=== PATIENT | female | born 1945 | race Caucasian/White ===

== ENCOUNTER → 2017-11-19 | Outpatient (CLI) | payer MEDICARE, OTHER ==
[~2017-11-19] MED LIST: DENOSUMAB 60 MG/ML 1 ML SYRINGE SQ NR
[2017-11-19 10:25] VITALS: BP 113/77; PULSE 97; RESP 16; TEMP 97.9
== END | disposition home or self-care (01) ==
LOC: PROCWHC3 09:54
PROVIDERS: ATTEND Family Medicine
DX: M81.0 Age-related osteoporosis without current pathological fracture (principal)
CPT/HCPCS: 96372; J0897

== ENCOUNTER → 2018-05-23 | Outpatient (CLI) | payer MEDICARE, OTHER ==
[~2018-05-23] MED LIST changes: -DENOSUMAB 60 MG/ML 1 ML SYRINGE SQ NR; +DENOSUMAB 60 MG/ML 1 ML SYRINGE SQ ONE
[2018-05-23 14:57] VITALS: BP 127/62; PULSE 110; RESP 18; TEMP 97.8
== END | disposition home or self-care (01) ==
LOC: PROCWHC3 14:45
PROVIDERS: ATTEND Family Medicine
DX: M81.0 Age-related osteoporosis without current pathological fracture (principal)
CPT/HCPCS: 96372; J0897

== ENCOUNTER → 2018-12-06 | Outpatient (CLI) | payer MEDICARE, OTHER ==
[~2018-12-06] MED LIST changes: +DENOSUMAB 60 MG/ML 1 ML SYRINGE SQ NR; -DENOSUMAB 60 MG/ML 1 ML SYRINGE SQ ONE
[2018-12-06 13:52] VITALS: BP 95/58; PULSE 61; RESP 18; TEMP 97.9
== END | disposition home or self-care (01) ==
LOC: PROCWHC3 13:33
PROVIDERS: ATTEND Family Medicine
DX: M81.0 Age-related osteoporosis without current pathological fracture (principal)
CPT/HCPCS: 96372; J0897

== ENCOUNTER 2020-01-04 13:26 | Emergency (ER) | payer MEDICARE, OTHER ==
--- NOTE | 2020-01-04 14:02 | ED ---
Chest Pain HPI - General Chief Complaint: Chest Pain Stated Complaint: chest pain Time Seen by Provider: 01/04/20 13:41 Source: patient Mode of arrival: ambulatory Limitations: no limitations - History of Present Illness Initial Comments: Dictation was produced using [employer] dictation software. please excuse any grammatical, word or spelling errors. This patient was cared for during a federal and state declared state of emergency secondary to Covid 19 Chief Complaint: 74-year-old female past medical history coronary artery disease, angina and coronary artery stent presents with neck pain and chest pain. History of Present Illness: A 74-year-old female she's been working with a chiropractor. She's been getting soft tissue treatment to her cervical soft tissues. She's been having treatments for several days now. Shortly after patient has been having neck pain has been returning down to her chest. She states that the pain as sharp and dull. She discuss her symptoms with another individual and was told to come to the emergency department. Patient denies any associated nausea. No associated diaphoresis. No extension of her symptoms under extremities. Patient denies any symptoms at this time. She denies any dyspnea. Patient's symptoms seemed to be exacerbated with movement. The ROS documented in this emergency department record has been reviewed and confirmed by me. Those systems with pertinent positive or negative responses have been documented in the HPI. All other systems are other negative and/or no ncontributory. PHYSICAL EXAM: General Impression: Alert and oriented x3, not in acute distress HEENT: Normocephalic atraumatic, extra-ocular movements intact, pupils equal and reactive to light bilaterally, mucous membranes moist. Cardiovascular: Heart regular rate and rhythm Chest: Able to complete full sentences, no retractions, no tachypnea Abdomen: abdomen soft, non-tender, non-distended, no organomegaly Musculoskeletal: Pulses present and equal in all extremities, no peripheral edema Motor: no focal deficits noted Neurological: CN II-XII grossly intact, no focal motor or sensory deficits noted Skin: Intact with no visualized rashes Psych: Normal affect and mood ED course: 74-year-old female presents with chest pain and neck pain after recent initiation of chiropractic therapy. Vital signs upon arrival shows heart rate of 101, rest of vital signs within acceptable limits. EKG was obtained similar findings to EKG from 2015. Her HPI suggests a typical features. Laboratory evaluation obtained. CBC unremarkable. Coag panel is negative. Metabolic panel is negative. Enzymes negative. So troponins showed no dynamic changes. Chest x-ray is nonacute. Patient prescription consistent with atypical chest pain likely secondary to recent manipulative therapy by chiropractor. Patient advised to take [id number] analgesics to alleviate her symptoms. A temporary discussed. Patient will be discharged. EKG interpretation: Ventricular rate 100, normal sinus rhythm,. 152, QRS 108, QTc 446. No [place] prolongation, no QTC prolongation. No recent old EKG for comparison. There does appear to be some hyperacute T waves in the anterior precordial leads that appear to be baseline. 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 Repeat EKG was obtained several minutes later. Ventricular rate 84, QRS 110, QTc 450. Sinus rhythm with sinus arrhythmia. No dynamic changes noted. - Related Data Home Medications Medication Instructions Recorded Confirmed Cholecalciferol [Vitamin D3 (25 2,000 unit PO DAILY 01/05/14 12/06/18 Mcg = 1000 Iu)] Folic Acid 1 mg PO DAILY 01/05/14 12/06/18 Levothyroxine Sodium [Synthroid] 88 mcg PO QAM 01/05/14 12/06/18 Amitriptyline HCl 25 mg PO HS 04/04/15 12/06/18 Cyanocobalamin [Vitamin B-12 1,000 mcg SQ Q30D 04/04/15 12/06/18 Injection] Cyclobenzaprine [Flexeril] 10 mg PO BID 04/04/15 12/06/18 Hydrocodone/Acetaminophen 1 tab PO QID 04/04/15 12/06/18 [Hydrocodone-Acetamin 10-325 mg] Aspirin 325 mg PO DAILY 11/21/15 12/06/18 Atorvastatin [Lipitor] 20 mg PO DAILY 11/21/15 12/06/18 Fluticasone/Salmeterol [Advair 1 puff INHALATION DAILY PRN 11/21/15 12/06/18 100-50 Diskus] carvediloL [Coreg] 6.25 mg PO BID 11/21/15 12/06/18 Metoprolol Succinate [Toprol XL] 50 mg PO TID 05/23/18 12/06/18 Allergies Allergy/AdvReac Type Severity Reaction Status Date / Time codeine Allergy Rash/Hives Verified 01/04/20 13:35 Review of Systems ROS Statement: Those systems with pertinent positive or pertinent negative responses have been documented in the HPI. ROS Other: All systems not noted in ROS Statement are negative. Past Medical History Past Medical History: Chest Pain / Angina, COPD, Fibromyalgia, GERD/Reflux, Hypertension, Osteoarthritis (OA), Thyroid Disorder Additional Past Medical History / Comment(s): ANEMIA. Pain upper shoulder blades,upper back, and throat pressure. COLITIS (PERIODIC SEVERE PAIN & DIARRHEA). History of Any Multi-Drug Resistant Organisms: None Reported Past Surgical History: Bariatric Surgery, Cholecystectomy, Heart Catheterization, Tubal Ligation Additional Past Surgical History / Comment(s): 04-09-15 LT HEART CATH W/STENT PLACED TO MID LAD ,USED RT RADIAL APPROACH. OTHER PAST SX INCLUDES: STOMACH STAPLING. DISCECTOMY TO NECK. RECONSTRUCTIVE STOMACH SURG. Past Anesthesia/Blood Transfusion Reactions: Motion Sickness Additional Past Anesthesia/Blood Transfusion Reaction / Comment(s): CLAUSTERPHOBIA Past Psychological History: No Psychological Hx Reported Smoking Status: Vaper Past Alcohol Use History: None Reported Past Drug Use History: None Reported - Past Family History Mother Additional Family Medical History / Comment(s): heart problems Father Additional Family Medical History / Comment(s): heart problems Brother(s) Family Medical History: Myocardial Infarction (PR) Daughter(s) Family Medical History: Myocardial Infarction (PR) Additional Family Medical History / Comment(s): obesity,lung problems General Exam Limitations: no limitations Course Vital Signs 01/04/20 01/04/20 13:29 14:30 Temperature 98.1 F Pulse Rate 101 H 94 Respiratory 18 14 Rate Blood Pressure 146/91 110/87 O2 Sat by Pulse 96 95 Oximetry Disposition Clinical Impression: Chest pain Disposition: HOME SELF-CARE Condition: Good Instructions (If sedation given, give patient instructions): Chest Pain (ED) Is patient prescribed a controlled substance at d/c from ED?: No Referrals: Violet Robledo MD [Primary Care Provider] - 1-2 days Time of Disposition: 15:11
[2020-01-04 14:28] LABS: Basophils # (A) 0.1 k/uL (0-0.2); Basophils % (A) 1 %; Eosinophils # (A) 0.3 k/uL (0-0.7); Eosinophils % (A) 3 %; HCT 42.8 % (34.0-46.0); HGB 12.9 gm/dL (11.4-16.0); Hypochromasia Moderate; Lymphocytes # (A) 1.8 k/uL (1.0-4.8); Lymphocytes % (A) 17 %; MCH 26.1 pg (25.0-35.0); MCHC 30.2 g/dL (31.0-37.0); MCV 86.6 fL (80.0-100.0); Monocytes # (A) 0.5 k/uL (0-1.0); Monocytes % (A) 5 %; Neutrophils # (A) 7.5 k/uL (1.3-7.7); Neutrophils % (A) 73 %; Platelet Count 362 k/uL (150-450); RBC 4.95 m/uL (3.80-5.40); RDW 15.4 % (11.5-15.5); WBC 10.3 k/uL (3.8-10.6)
[2020-01-04 14:39] LABS: Albumin 3.5 g/dL (3.5-5.0); Calcium 9.2 mg/dL (8.4-10.2); Magnesium 1.7 mg/dL (1.6-2.3); Potassium 4.9 mmol/L (3.5-5.1); Total Bilirubin 0.3 mg/dL (0.2-1.3); Total Protein 5.9 g/dL (6.3-8.2)
--- NOTE | 2020-01-04 14:40 | XR ---
EXAMINATION TYPE: XR chest 2V DATE OF EXAM: 01/04/2020 COMPARISON: NONE HISTORY: Shortness of breath TECHNIQUE: Frontal and lateral views of the chest are obtained. FINDINGS: Scattered senescent parenchymal changes noted. Hyperinflation compatible with COPD. No evidence for infiltrate. No evidence for atelectasis. Heart size is stable. Mediastinal structures are stable and grossly unremarkable. No evidence for hilar prominence. Degenerative changes dorsal spine. IMPRESSION: 1. No evidence for acute pulmonary disease.
[2020-01-04 14:49] LABS: INR 0.9 (<1.2); Partial Thromboplastin Time 22.2 sec (22.0-30.0); Prothrombin Time 9.3 sec (9.0-12.0)
[2020-01-04 15:23] VITALS: BP 107/79; PULSE 97; RESP 17; TEMP 98.3
== END 2020-01-04 15:23 | disposition home or self-care (01) ==
LOC: EC 13:26
DX: R07.89 Other chest pain (principal); M54.2 Cervicalgia; I49.8 Other specified cardiac arrhythmias; I25.2 Old myocardial infarction; J44.9 Chronic obstructive pulmonary disease, unspecified; M79.7 Fibromyalgia; K21.9 Gastro-esophageal reflux disease without esophagitis; I10 Essential (primary) hypertension; M19.90 Unspecified osteoarthritis, unspecified site; E07.9 Disorder of thyroid, unspecified; D64.9 Anemia, unspecified; F17.290 Nicotine dependence, other tobacco product, uncomplicated; Z79.82 Long term (current) use of aspirin; Z79.51 Long term (current) use of inhaled steroids; Z79.899 Other long term (current) drug therapy; Z79.890 Hormone replacement therapy; Z88.5 Allergy status to narcotic agent; Z95.5 Presence of coronary angioplasty implant and graft; Z98.84 Bariatric surgery status; Z87.19 Personal history of other diseases of the digestive system
CPT/HCPCS: 36415; 71046; 80053; 83735; 84484; 85025; 85610; 85730; 93005; 99285

== ENCOUNTER 2023-02-22 06:45 | Day surgery (SDC) | payer MEDICARE, OTHER ==
[~2023-02-22 06:45] MED LIST changes: +ALPRAZolam 0.25 MG TAB PO PRN; +ALPRAZolam 0.5 MG TAB PO PRN; +ASPIRIN 325 MG TAB PO STA; -DENOSUMAB 60 MG/ML 1 ML SYRINGE SQ NR; +HEPARIN SODIUM,PORCINE (1 ML) 2,500 UNIT in SODIUM CHLORIDE 0.9% 250 ML IRRIGATION PRN; +HEPARIN SODIUM,PORCINE 10,000 UNIT in SODIUM CHLORIDE 0.9% 1,000 ML IRRIGATION PRN; +NITROGLYCERIN SL TABS 0.4 MG TAB SUBLINGUAL PRN; +SODIUM CHLORIDE 0.9% 1,000 ML in EMPTY BAG 1 BAG IV SCH
[2023-02-22] MEDS ORDERED: SODIUM CHLORIDE 0.9% 1,000 ML IV ONE (06:56)
[2023-02-22 07:26] LABS: Basophils % (A) 1 %; Eosinophils # (A) 0.4 k/uL (0-0.7); Eosinophils % (A) 6 %; HCT 46.9 % (34.0-46.0); HGB 14.1 gm/dL (11.4-16.0); Hypochromasia Marked; Lymphocytes # (A) 2.2 k/uL (1.0-4.8); Lymphocytes % (A) 30 %; MCHC 30.1 g/dL (31.0-37.0); MCV 89.6 fL (80.0-100.0); Mean Platelet Volume 7.5; Monocytes # (A) 0.4 k/uL (0-1.0); Monocytes % (A) 6 %; Neutrophils % (A) 57 %; Platelet Count 235 k/uL (150-450); RBC 5.23 m/uL (3.80-5.40); RDW 15.3 % (11.5-15.5); WBC 7.1 k/uL (3.8-10.6)
[2023-02-22 07:30] VITALS: TEMP 97.8
[2023-02-22 07:43] LABS: African American GFR (CKD) 66 (>60 ml/min/1.73 sqM); Anion Gap 7 mmol/L; Blood Urea Nitrogen 15 mg/dL (7-17); Calcium 8.8 mg/dL (8.4-10.2); Carbon Dioxide 26 mmol/L (22-30); Chloride 105 mmol/L (98-107); Glucose 94 mg/dL (74-99); Non-African American GFR(CKD) 58 (>60 ml/min/1.73 sqM); Sodium 138 mmol/L (137-145)
[2023-02-22 07:44] LABS: Potassium 5.5 mmol/L (3.5-5.1)
[2023-02-22] MEDS ORDERED: VERAPAMIL 2.5 MG/ML 2 ML AMP ONE (08:14)
[2023-02-22] MEDS ORDERED: HEPARIN SODIUM 1,000 UN/ML (10ML VL) ONE (08:23)
[2023-02-22] MEDS ORDERED: MIDAZOLAM 2 MG/2 ML VIAL IVP ONE (08:28)
[2023-02-22] MEDS ORDERED: LIDOCAINE 1% INJ 10MG/ML (30 ML VIAL-PF) SQ ONE (08:32)
[2023-02-22] MEDS ORDERED: VERAPAMIL SYRINGE (5 MG/10 ML) INTRAARTER ONE (08:36)
[2023-02-22] MEDS ORDERED: HEPARIN SODIUM 1,000 UN/ML (10ML VL) IV ONE (08:36)
[2023-02-22] MEDS ORDERED: IOPAMIDOL-370 100ML BTL INJ ONE (08:40)
[2023-02-22] MEDS ORDERED: RX INFO: IV CONTRAST WAS GIVEN 1 EACH MISC MISCELLANE PRN (08:46)
--- NOTE | 2023-02-22 08:54 | P.PCN ---
Date of Procedure: 02/22/23 Operative Findings: CARDIAC CATHETERIZATION PERFORMING PHYSICIAN: Nasir Garsia MD, RPVI PROCEDURE PERFORMED: 1. Selective right and left coronary angiogram 2. Left heart catheterization 3. Ultrasound-guided access of the right radial artery INDICATION: Chest discomfort concerning for angina in this 77-year-old female patient was known to have CAD was prior stenting of the LAD as well as multiple risk factors for CAD. COMPLICATION: None APPROACH: Right radial artery LEVEL OF SEDATION: Moderate with a sedation length of 14 minutes PROCEDURE DESCRIPTION: After obtaining an informed consent, the patient was brought to cardiac cath l ab. Local anesthesia was performed using lidocaine subcutaneously. The right radial artery was cannulated using Seldinger technique, the guidewire passed easily, following that we advanced a 5-Vincentian sheath dilator assembly, the wire and dilator were removed and sheath was flushed. Following that, 2 mg of verapamil along with 5000 unit heparin were given. Selective right and left coronary angiogram using a 6-Vincentian JR4 and JL 3.5 catheters. Following that we did left heart catheterization using the JR 4 catheter. The procedure was completed there was no complication. SELECTIVE CORONARY ANGIOGRAM: The right coronary artery: Large caliber vessel and a dominant vessel. The RCA has mild disease in the midportion. Distally bifurcates into PDA and PLV branches and both appeared to be angiographically normal Left main: Has mild disease distally. Bifurcates into an LCx and LAD The left circumflex: Large caliber vessel and nondominant dominant vessel. The LCx appeared to be angiographically normal. It gives rises into OM1 and OM 2 and both appeared to be angiographically normal. The circumflex continue after that as a medium caliber vessel in the AV groove The left anterior descending artery: Large caliber vessel. The proximal LAD appeared to be angiographically normal. The mid LAD is a stented and the stent is patent. The LAD distally appears to be angiographically normal. The LAD gives rise into a diagonal branch which seems to be normal as well HEMODYNAMICS: The LVEDP was 14 mmHg with no significant gradient across aortic valve CONCLUSION: 1. Patent stent in the mid left anterior descending artery 2. Normal left-sided filling pressure POSTPROCEDURE MANAGEMENT: Medical treatment
[2023-02-22] MEDS ORDERED: SODIUM CHLORIDE 0.9% 1,000 ML IV SCH (09:00)
[2023-02-22 09:07] VITALS: RESP 16
[2023-02-22 12:22] VITALS: BP 128/72; PULSE 72
== END 2023-02-22 12:18 | disposition home or self-care (01) ==
LOC: CATHCVL 06:45
PROVIDERS: ATTEND Internal Medicine Interventional Cardiology
DX: I25.10 Atherosclerotic heart disease of native coronary artery without angina pectoris (principal); I10 Essential (primary) hypertension; E78.5 Hyperlipidemia, unspecified; F17.210 Nicotine dependence, cigarettes, uncomplicated; I65.23 Occlusion and stenosis of bilateral carotid arteries; I38 Endocarditis, valve unspecified; Z88.5 Allergy status to narcotic agent; Z79.82 Long term (current) use of aspirin; Z79.899 Other long term (current) drug therapy
CPT/HCPCS: 93458; 76937; 80048; 85025; C1769; C1894; J2250; J2001; J1644; Q9967

== ENCOUNTER → 2023-03-08 | Outpatient (CLI) | payer MEDICARE, OTHER ==
--- NOTE | 2023-03-09 10:57 | MR ---
EXAMINATION TYPE: MR brain and iac wo/w con DATE OF EXAM: 03/08/2023 10:17 PM CLINICAL INDICATION:Female, 77 years old with history of H91.90 UNSPECIFIED HEARING LOSS, UNSPECIFIED EAR; PHH, Hearing loss on Right side COMPARISON: None TECHNIQUE: Multi planar, multi sequence imaging was performed through the brain. Specialized thin s equences were obtained through the internal auditory canals. Pre-and post gadolinium sequences were obtained. MR contrast: IV Contrast: 9 cc Gadavist FINDINGS: The guo-white junctions, ventricular system, and cisterns appear unremarkable. Scattered foci of hi gh T2 signal intensity are seen within the periventricular white matter some of which are orthogonal to the lateral ventricles. Midline structures show no abnormality. Diffusion-weighted imaging shows n o evidence of restricted diffusion. The susceptibility weighted images do not reveal any evidence for micro-hemorrhage. 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 The bone marrow signal is within normal limits. Paranasal sinuses and mastoid air cells: Mild scattered paranasal sinus disease. Visualized orbits: Bilateral aphakia After administration of gadolinium, no abnormal enhancement is seen. The internal auditory canal sequences demonstrate no significant irregularity. The 7th cranial nerve s, 8 cranial nerves, and cerebellar pontine angles appear unremarkable. After the administration molly olinium, no abnormal enhancement is seen within the internal auditory canals. Vascular loop: None. IMPRESSION: 1. No evidence of intracranial mass nor acute/subacute CVA. 2. No evidence of internal auditory canal abnormality. 3. White matter changes some of which are orthogonal to the lateral ventricles. Correlate for demyel ination. Other white matter changes appear to represent chronic small vessel ischemic disease changes .
== END | disposition home or self-care (01) ==
LOC: RADMRIMAIN 20:00
PROVIDERS: ATTEND Otolaryngology
DX: H91.91 Unspecified hearing loss, right ear (principal); R90.82 White matter disease, unspecified
CPT/HCPCS: 70553; A9585

== ENCOUNTER 2023-11-19 21:15 | Inpatient (IN) | payer MEDICARE, OTHER ==
--- NOTE | 2023-11-19 21:29 | ED ---
Altered Mental Status HPI - General Stated Complaint: CARDIAC ARREST Time Seen by Provider: 11/19/23 21:17 Source: patient, EMS Mode of arrival: EMS Limitations: no limitations - History of Present Illness Initial Comments: This patient is an 78-year-old woman who is brought to have evaluation after syncopal episode or arrest. EMS was called because the patient reportedly had passed out while she had bent over to feed her cat. Patient's family reportedly did CPR, on EMS arrival they did find vital signs with heart rate approximately 70. SHe was alert and speaking. During transport the patient appeared to develop third-degree heart block with pulse in the 20s. The EMS personnel did give epinephrine 1 mg, 2 doses were delivered. They also performed external pacing. On arrival the patient is able to give some details. She denied having pain at home. She did say she was short of breath at home. She does not remember the syncopal episode. She is currently denying chest pain other than related to the external pacing that is going on. EMS did give dose of Versed 2 mg for the pacing. MD Complaint: altered mental status -: minutes(s) Severity: severe Consistency of Symptoms: waxing and waning Associated Symptoms: diaphoresis, shortness of breath Treatments Prior to Arrival: other pre-hospital medication (Epinephrine and external pacing. Versed.) - Related Data Home Medications Medication Instructions Recorded Confirmed Folic Acid 1 mg PO DAILY 01/05/14 11/20/23 Levothyroxine Sodium [Synthroid] 88 mcg PO DAILY 01/05/14 11/20/23 Aspirin [Adult Low Dose Aspirin EC] 81 mg PO DAILY 02/18/23 11/20/23 Escitalopram Oxalate [Lexapro] 10 mg PO DAILY 02/18/23 11/20/23 Gabapentin 300 mg PO BID 02/18/23 11/20/23 Metoprolol Tartrate [Lopressor] 100 mg PO BID 02/18/23 11/20/23 Nitroglycerin 0.4 mg SL Q5M PRN 02/18/23 11/20/23 Pantoprazole [Protonix] 40 mg PO DAILY 02/18/23 11/20/23 clonazePAM 0.75 mg PO HS 02/18/23 11/20/23 Amiodarone [Cordarone] 200 mg PO DAILY 11/20/23 11/20/23 Apixaban [Eliquis] 5 mg PO BID 11/20/23 11/20/23 Atorvastatin Calcium [Lipitor] 40 mg PO HS 11/20/23 11/20/23 Budesonide/Formoterol Fumarate 2 puff INHALATION RT-BID 11/20/23 11/20/23 [Symbicort 160-4.5 Mcg Inhaler] Cyanocobalamin [Vitamin B-12 1,000 mcg SQ Q14D 11/20/23 11/20/23 Injection] Denosumab [Prolia] 60 mg SQ Q180D 11/20/23 11/20/23 Furosemide [Lasix] 40 mg PO DAILY 11/20/23 11/20/23 oxyCODONE-APAP 7.5-325MG [Percocet 1 tab PO QID 11/20/23 11/20/23 7.5-325 mg] Previous Rx's Medication Instructions Recorded Cholecalciferol [Vitamin D3 (25 50 mcg PO DAILY tab 11/23/23 Mcg = 1000 Iu)] Isosorbide Mononitrate ER [Imdur] 30 mg PO QAM #30 tab 11/23/23 Oxybutynin ER [Ditropan XL] 15 mg PO QAM #30 tab 11/23/23 Allergies Allergy/AdvReac Type Severity Reaction Status Date / Time codeine Allergy cannot Verified 11/20/23 09:26 move muscles Review of Systems ROS Statement: Those systems with pertinent positive or pertinent negative responses have been documented in the HPI. ROS Other: All systems not noted in ROS Statement are negative. Constitutional: Reports: weakness. Denies: fever, chills Eyes: Denies: vision change Respiratory: Reports: dyspnea. Denies: cough, wheezes, hemoptysis Cardiovascular: Reports: syncope. Denies: chest pain, palpitations, orthopnea, edema Gastrointestinal: Denies: abdominal pain, vomiting, diarrhea Genitourinary: Denies: dysuria, hematuria Musculoskeletal: Denies: back pain Skin: Denies: rash Neurological: Denies: headache, weakness, numbness Past Medical History Past Medical History: Chest Pain / Angina, COPD, GERD/Reflux, Hypertension, Osteoarthritis (OA), Thyroid Disorder Additional Past Medical History / Comment(s): Abnormal ekf. Anemia, murmur, pain upper shoulder blades/upper back, and throat pressure, COLITIS (PERIODIC SEVERE PAIN & DIARRHEA). History of Any Multi-Drug Resistant Organisms: None Reported Past Surgical History: Bariatric Surgery, Cholecystectomy, Heart Cathet erization, Joint Replacement, Orthopedic Surgery, Tubal Ligation Additional Past Surgical History / Comment(s): 04-09-15 LT HEART CATH W/STENT PLACED TO MID LAD ,USED RT RADIAL APPROACH. OTHER PAST SX INCLUDES: STOMACH STAPLING. DISCECTOMY TO NECK. RECONSTRUCTIVE STOMACH SURG, total R shoulder replaced, R total knee. Past Anesthesia/Blood Transfusion Reactions: Motion Sickness Additional Past Anesthesia/Blood Transfusion Reaction / Comment(s): CLAUSTERPHOBIA Smoking Status: Current every day smoker, Vaper - Past Family History Mother Additional Family Medical History / Comment(s): heart problems Father Additional Family Medical History / Comment(s): heart problems Brother(s) Family Medical History: Myocardial Infarction (CT) Additional Family Medical History / Comment(s): of CT at 59 yrs. Daughter(s) Family Medical History: Myocardial Infarction (CT) Additional Family Medical History / Comment(s): obesity,lung problems, from CT at 46yrs. General Exam General appearance: alert, in no apparent distress Head exam: Present: atraumatic, normocephalic Eye exam: Present: normal appearance. Absent: scleral icterus, conjunctival injection ENT exam: Present: mucous membranes dry Neck exam: Present: normal inspection Respiratory exam: Present: normal lung sounds bilaterally. Absent: respiratory distress, wheezes, rales, rhonchi, stridor, accessory muscle use Cardiovascular Exam: Present: regular rate, normal rhythm, normal heart sounds. Absent: systolic murmur, diastolic murmur, rubs, gallop GI/Abdominal exam: Present: soft. Absent: distended, tenderness, guarding, rebound, rigid, mass Extremities exam: Present: normal inspection, normal capillary refill. Absent: pedal edema, calf tenderness Back exam: Present: normal inspection. Absent: CVA tenderness (R), CVA tenderness (L) Neurological exam: Present: alert, CN II-XII intact. Absent: oriented X3 (Disoriented to the date. Oriented to person and place), motor sensory deficit Skin exam: Present: warm, dry, intact, normal color. Absent: rash Course Vital Signs 11/19/23 11/19/23 11/19/23 21:18 21:22 21:31 Temperature Pulse Rate 70 63 67 Pulse Rate [ 58 L Consumer Recruiter ] Respiratory 20 18 20 Rate Blood Pressure 119/73 121/62 O2 Sat by Pulse 100 100 Oximetry 11/19/23 11/19/23 11/19/23 21:41 21:45 22:15 Temperature Pulse Rate 61 58 L Pulse Rate [ Consumer Recruiter ] Respiratory 16 14 Rate Blood Pressure 92/48 105/61 O2 Sat by Pulse 98 100 Oximetry 11/19/23 11/20/23 11/20/23 23:15 00:28 00:30 Temperature Pulse Rate 60 63 59 L Pulse Rate [ Consumer Recruiter ] Respiratory 12 18 13 Rate Blood Pressure 141/81 139/75 O2 Sat by Pulse 100 99 Oximetry 11/20/23 11/20/23 11/20/23 00:40 00:50 01:00 Temperature Pulse Rate 61 60 62 Pulse Rate [ Consumer Recruiter ] Respiratory 11 L 11 L 12 Rate Blood Pressure 138/78 131/73 O2 Sat by Pulse 99 99 99 Oximetry 11/20/23 11/20/23 11/20/23 01:10 01:15 01:20 Temperature Pulse Rate 60 60 61 Pulse Rate [ Consumer Recruiter ] Respiratory 13 14 11 L Rate Blood Pressure 128/67 149/82 149/82 O2 Sat by Pulse 99 100 Oximetry 11/20/23 11/20/23 11/20/23 01:40 02:00 02:10 Temperature Pulse Rate 60 60 60 Pulse Rate [ Consumer Recruiter ] Respiratory 12 11 L 10 L Rate Blood Pressure 145/75 161/85 159/81 O2 Sat by Pulse 99 99 99 Oximetry 11/20/23 11/20/23 11/20/23 02:20 02:30 02:40 Temperature Pulse Rate 59 L 65 70 Pulse Rate [ Consumer Recruiter ] Respiratory 11 L 15 16 Rate Blood Pressure 163/80 163/80 157/109 O2 Sat by Pulse 99 94 L 96 Oximetry 11/20/23 11/20/23 11/20/23 02:50 03:00 03:10 Temperature Pulse Rate 66 69 63 Pulse Rate [ Consumer Recruiter ] Respiratory 23 16 9 L Rate Blood Pressure 138/78 138/78 141/79 O2 Sat by Pulse 97 96 99 Oximetry 11/20/23 11/20/23 11/20/23 03:20 03:30 03:40 Temperature Pulse Rate 61 60 60 Pulse Rate [ Consumer Recruiter ] Respiratory 10 L 12 Rate Blood Pressure 168/80 154/74 O2 Sat by Pulse 98 99 Oximetry 11/20/23 11/20/23 11/20/23 04:00 04:10 04:30 Temperature Pulse Rate 60 61 56 L Pulse Rate [ Consumer Recruiter ] Respiratory 11 L 7 L 13 Rate Blood Pressure 144/75 124/77 133/75 O2 Sat by Pulse 99 99 98 Oximetry 11/20/23 11/20/23 11/20/23 04:40 05:00 05:20 Temperature Pulse Rate 61 61 67 Pulse Rate [ Consumer Recruiter ] Respiratory 12 13 13 Rate Blood Pressure 117/76 121/76 128/71 O2 Sat by Pulse 99 99 98 Oximetry 11/20/23 11/20/23 11/20/23 05:30 06:20 06:30 Temperature Pulse Rate 60 59 L 62 Pulse Rate [ Consumer Recruiter ] Respiratory 13 13 14 Rate Blood Pressure 128/71 146/72 146/72 O2 Sat by Pulse 99 100 99 Oximetry 11/20/23 11/20/23 11/20/23 06:40 08:16 09:48 Temperature Pulse Rate 63 60 59 L Pulse Rate [ Consumer Recruiter ] Respiratory 13 18 16 Rate Blood Pressure 146/72 141/76 155/82 O2 Sat by Pulse 99 99 97 Oximetry 11/20/23 11/20/23 12:19 12:36 Temperature 98.0 F 97.8 F Pulse Rate 63 Pulse Rate [ Consumer Recruiter ] Respiratory 18 Rate Blood Pressure 122/73 O2 Sat by Pulse 96 Oximetry - Reevaluation(s) Reevaluation #1: 11/19/23 23:15 Brought for syncopal episode, possible cardiac arrest. The patient never had l oss vital signs during EMSs course with the patient, suspect that the patient just had low heart rate and blood pressure but no cardiac arrest. Medical Decision Making - Medical Decision Making Patient is an 78-year-old woman here for period of unresponsiveness that appears to have been probably due to hypotension. She did have episode of third-degree heart block with symptomatic bradycardia during transport. She arrived with external pacing in progress. The pacing was held and the patient is in sinus rhythm on arrival. Case discussed with Dr. Felix, request that the patient be placed on low-dose of dopamine. Patient is admitted but she is holding in the ED. Was stable for a number of hours, case was discussed with cardiology again by nursing and the dopamine drip was then held. I discussed the case with Dr. Grider, regarding ICU admission to ensure that the patient does not go again into third-degree heart block with symptomatic bradycardia and patient can be admitted to the ICU until she is cleared by cardiology The patient had chest x-ray that I interpreted as negative for acute infiltrate, pneumothorax, congestive heart failure Was pt. sent in by a medical professional or institution (, PA, FIELD ADVISOR, urgent care, hospital, or correction...) When possible be specific @ -[No] Did you speak to anyone other than the patient for history (EMS, parent, family, police, friend...)? What history was obtained from this source @ -EMS gave additional history Did you review nursing and triage notes (agree or disagree)? Why? @ -[I reviewed and agree with nursing and triage notes] Were old charts reviewed (outside hosp., previous admission, EMS record, old EKG, old radiological studies, urgent care reports/EKG's, correction records)? Report findings @ -[No old charts were reviewed] Differential Diagnosis (chest pain, altered mental status, abdominal pain women, abdominal pain men, vaginal bleeding, weakness, fever, dyspnea, syncope, headache, dizziness, GI bleed, back pain, seizure, CVA, palpatations, mental health, musculoskeletal)? @ -[Differential Syncope: Valvular disease, hypertrophic cardiomyopathy, pulmonary embolism, tamponade, tachycardia, bradycardia, CT, hypovolemia, hemorrhage, dissection, anemia, intracranial hemorrhage, seizure, hypoglycemia, carbon monoxide poisoning, this is not meant to be an all-inclusive list. EKG interpreted by me (3pts min.). @ -[I interpreted as above] X-rays interpreted by me (1pt min.). @ -I interpreted as above CT interpreted by me (1pt min.). @ -[None done] U/S interpreted by me (1pt. min.). @ -[None done] What testing was considered but not performed or refused? (CT, X-rays, U/S, labs)? Why? @ -[None] What meds were considered but not given or refused? Why? @ -[None] Did you discuss the management of the patient with other professionals (professionals i.e. , YULISA, FIELD ADVISOR, lab, RT, psych nurse, psych social worker, compensation adjuster, teacher, sewage reticulation drafting officer, egg caser)? Give summary @ -[I discussed the case both with the admitting physician and with cardiology on-call and their treatment recommendations are incorporated Was smoking cessation discussed for >3mins.? @ -[No] Was critical care preformed (if so, how long)? @ -[No] Were there social determinants of health that impacted care today? How? (Homelessness, low income, unemployed, alcoholism, drug addiction, transportation, low edu. Level, literacy, decrease access to med. care, senior living, rehab)? @ -[No] Was there de-escalation of care discussed even if they declined (Discuss DNR or withdrawal of care, Hospice)? DNR status @ -[No] What co-morbidities impacted this encounter? (DM, HTN, Smoking, COPD, CAD, Cancer, CVA, ARF, Chemo, Hep., AIDS, mental health diagnosis, sleep apnea, mor bid obesity)? @ -[None] Was patient admitted / discharged? Hospital course, mention meds given and route, prescriptions, significant lab abnormalities, going to OR and other pertinent info. @ -See the above note patient is admitted to have further monitoring and treatment as well as cardiology consultation. Undiagnosed new problem with uncertain prognosis? @ -[No] Drug Therapy requiring intensive monitoring for toxicity (Heparin, Nitro, Insulin, Cardizem)? @ -[No] Were any procedures done? @ -[No] Diagnosis/symptom? @ -Acute syncopal episode Third-degree heart block. Symptomatic bradycardia Acute kidney injury Acute, or Chronic, or Acute on Chronic? @ -[Acute Uncomplicated (without systemic symptoms) or Complicated (systemic symptoms)? @ -[Complicated by loss consciousness Side effects of treatment? @ -[No] Exacerbation, Progression, or Severe Exacerbation? @ -[No] Poses a threat to life or bodily function? How? (Chest pain, USA, CT, pneumonia, PE, COPD, DKA, ARF, appy, cholecystitis, CVA, Diverticulitis, Homicidal, Suicidal, threat to staff... and all critical care pts) @ -Yes complete heart block may lead to sudden cardiac . - Lab Data Result diagrams: 11/22/23 07:47 11/22/23 07:47 Lab Results 11/19/23 11/19/23 11/19/23 Range/Units 21:17 21:17 21:17 WBC 8.5 (3.8-10.6) k/uL RBC 4.98 (3.80-5.40) m/uL Hgb 13.5 (11.4-16.0) gm/dL Hct 46.1 H (34.0-46.0) % MCV 92.5 (80.0-100.0) fL MCH 27.1 (25.0-35.0) pg MCHC 29.3 L (31.0-37.0) g/dL RDW 15.1 (11.5-15.5) % Plt Count 201 (150-450) k/uL MPV 7.7 Neutrophils % 54 % Lymphocytes % 36 % Monocytes % 5 % Eosinophils % 2 % Basophils % 1 % Neutrophils # 4.6 (1.3-7.7) k/uL Lymphocytes # 3.1 (1.0-4.8) k/uL Monocytes # 0.5 (0-1.0) k/uL Eosinophils # 0.2 (0-0.7) k/uL Basophils # 0.1 (0-0.2) k/uL Hypochromasia Marked PT 11.3 (10.0-12.5) sec INR 1.0 (<1.2) APTT 25.1 (22.0-30.0) sec Sodium 140 (137-145) mmol/L Potassium 5.0 (3.5-5.1) mmol/L Chloride 103 (98-107) mmol/L Carbon Dioxide 30 (22-30) mmol/L Anion Gap 7 mmol/L BUN 32 H (7-17) mg/dL Creatinine 1.74 H (0.52-1.04) mg/dL Est GFR (CKD-EPI)AfAm 32 (>60 ml/min/1.73 sqM) Est GFR (CKD-EPI)NonAf 27 (>60 ml/min/1.73 sqM) Glucose 155 H (74-99) mg/dL Calcium 8.2 L (8.4-10.2) mg/dL Magnesium 1.8 (1.6-2.3) mg/dL Total Bilirubin 0.7 (0.2-1.3) mg/dL AST 43 H (14-36) U/L ALT 19 (4-34) U/L Alkaline Phosphatase 62 (38-126) U/L Troponin I (0.000-0.034) ng/mL Total Protein 5.7 L (6.3-8.2) g/dL Albumin 3.4 L (3.5-5.0) g/dL TSH (0.465-4.680) mIU/L Free T4 (0.78-2.19) ng/dL 11/19/23 11/19/23 Range/Units 21:17 21:17 WBC (3.8-10.6) k/uL RBC (3.80-5.40) m/uL Hgb (11.4-16.0) gm/dL Hct (34.0-46.0) % MCV (80.0-100.0) fL MCH (25.0-35.0) pg MCHC (31.0-37.0) g/dL RDW (11.5-15.5) % Plt Count (150-450) k/uL MPV Neutrophils % % Lymphocytes % % Monocytes % % Eosinophils % % Basophils % % Neutrophils # (1.3-7.7) k/uL Lymphocytes # (1.0-4.8) k/uL Monocytes # (0-1.0) k/uL Eosinophils # (0-0.7) k/uL Basophils # (0-0.2) k/uL Hypochromasia PT (10.0-12.5) sec INR (<1.2) APTT (22.0-30.0) sec Sodium (137-145) mmol/L Potassium (3.5-5.1) mmol/L Chloride (98-107) mmol/L Carbon Dioxide (22-30) mmol/L Anion Gap mmol/L BUN (7-17) mg/dL Creatinine (0.52-1.04) mg/dL Est GFR (CKD-EPI)AfAm (>60 ml/min/1.73 sqM) Est GFR (CKD-EPI)NonAf (>60 ml/min/1.73 sqM) Glucose (74-99) mg/dL Calcium (8.4-10.2) mg/dL Magnesium (1.6-2.3) mg/dL Total Bilirubin (0.2-1.3) mg/dL AST (14-36) U/L ALT (4-34) U/L Alkaline Phosphatase (38-126) U/L Troponin I 0.016 (0.000-0.034) ng/mL Total Protein (6.3-8.2) g/dL Albumin (3.5-5.0) g/dL TSH 7.640 H (0.465-4.680) mIU/L Free T4 2.34 H (0.78-2.19) ng/dL - EKG Data -: EKG Interpreted by [facility] EKG shows normal: sinus rhythm (With first-degree AV block. Rate is 67 bpm), axis (Left axis deviation), intervals (There is a first-degree AV block with MN interval 254 ms. QRS duration is prolonged at 158 ms. QTc 476 ms.), QRS complexes ( There is a left bundle branch block.) Disposition Clinical Impression: Symptomatic bradycardia, History of third degree heart block, Syncope Disposition: ADMITTED IP TO THIS HOSP Condition: Stable Is patient prescribed a controlled substance at d/c from ED?: No
--- NOTE | 2023-11-19 21:53 | XR ---
EXAMINATION TYPE: XR chest 1V portable DATE OF EXAM: 11/19/2023 9:42 PM CLINICAL INDICATION:Female, 78 years old with history of dysrhythmia; COMPARISON: Chest radiographs from 01/04/2020 TECHNIQUE: XR chest 1V portable Frontal view of the chest. FINDINGS: Lungs/Pleura: Increased opacities in the medial aspect of the right upper lung possibly scarring bedolla ges increased from 2020. There is no evidence of pleural effusion, focal consolidation, or pneumothor ax. Pulmonary vascularity: Unremarkable. Heart/mediastinum: Cardiomediastinal silhouette is enlarged and stable. Musculoskeletal: No acute osseous pathology. There is fixation hardware in the lower cervical spine. Right shoulder arthroplasty changes with hardware intact. IMPRESSION: Right upper lung medial increased airspace opacities compared to prior in 2020.
[2023-11-19 21:54] LABS: Basophils # (A) 0.1 k/uL (0-0.2); Basophils % (A) 1 %; Eosinophils # (A) 0.2 k/uL (0-0.7); Eosinophils % (A) 2 %; HCT 46.1 % (34.0-46.0); HGB 13.5 gm/dL (11.4-16.0); Hypochromasia Marked; Lymphocytes # (A) 3.1 k/uL (1.0-4.8); Lymphocytes % (A) 36 %; MCH 27.1 pg (25.0-35.0); MCHC 29.3 g/dL (31.0-37.0); MCV 92.5 fL (80.0-100.0); Mean Platelet Volume 7.7; Monocytes # (A) 0.5 k/uL (0-1.0); Monocytes % (A) 5 %; Neutrophils # (A) 4.6 k/uL (1.3-7.7); Neutrophils % (A) 54 %; Platelet Count 201 k/uL (150-450); RBC 4.98 m/uL (3.80-5.40); RDW 15.1 % (11.5-15.5); WBC 8.5 k/uL (3.8-10.6)
[2023-11-19 22:04] LABS: ALT 19 U/L (4-34); AST 43 U/L (14-36); African American GFR (CKD) 32 (>60 ml/min/1.73 sqM); Albumin 3.4 g/dL (3.5-5.0); Alkaline Phosphatase 62 U/L (38-126); Anion Gap 7 mmol/L; Blood Urea Nitrogen 32 mg/dL (7-17); Calcium 8.2 mg/dL (8.4-10.2); Carbon Dioxide 30 mmol/L (22-30); Chloride 103 mmol/L (98-107); Glucose 155 mg/dL (74-99); Magnesium 1.8 mg/dL (1.6-2.3); Non-African American GFR(CKD) 27 (>60 ml/min/1.73 sqM); Sodium 140 mmol/L (137-145); Total Bilirubin 0.7 mg/dL (0.2-1.3); Total Protein 5.7 g/dL (6.3-8.2)
[2023-11-19 22:11] LABS: Partial Thromboplastin Time 25.1 sec (22.0-30.0); Prothrombin Time 11.3 sec (10.0-12.5)
[2023-11-20] MEDS: DOPamine DRIP 800 MG in DEXTROSE/WATER 1 250ML.BAG IV ONE (00:15)
[2023-11-20] MEDS: SODIUM CHLORIDE 0.9% 500 ML 500 ML IV STA (00:18)
[2023-11-20] MEDS: ASPIRIN 81 MG PO STA (00:19)
[2023-11-20] MEDS ORDERED: NITROGLYCERIN SL TABS 0.4 MG TAB SUBLINGUAL PRN ×2 (01:01→18:08)
[2023-11-20] MEDS: LEVOTHYROXINE 88 MCG TAB PO SCH (06:51)
[2023-11-20] MEDS ORDERED: SYMBICORT 80-4.5 MCG INHALER INHALATION PRN (08:00)
[2023-11-20] MEDS: ISOSORBIDE MONONITRATE ER 30 MG TAB.ER.24H PO SCH (08:23)
[2023-11-20] MEDS: GABAPENTIN 300 MG CAP PO SCH (08:23)
[2023-11-20] MEDS: OXYBUTYNIN 15 MG TAB.ER.24 PO SCH (08:23)
[2023-11-20] MEDS: ASPIRIN 81 MG PO SCH (08:23)
[2023-11-20] MEDS: ATORVASTATIN 20 MG TAB PO SCH (08:23)
[2023-11-20] MEDS: PANTOPRAZOLE 40 MG TABLET PO SCH (08:23)
[2023-11-20] MEDS: CHOLECALCIFEROL 25 MCG (1000 IU) TABLET PO SCH (08:23)
[2023-11-20] MEDS ORDERED: ACETAMINOPHEN TAB 325 MG TAB PO PRN (09:37)
[2023-11-20] MEDS: AMIODARONE 200 MG TAB PO SCH (09:49)
[2023-11-20] MEDS: APIXABAN 2.5 MG TABLET PO SCH (09:50)
[2023-11-20] MEDS: SODIUM CHLORIDE 0.9% 1,000 ML IV SCH ×2 (10:03→19:04)
--- NOTE | 2023-11-20 11:42 | P.CNPUL ---
History of Present Illness Consult date: 11/20/23 Requesting physician: Violet Robledo Reason for consult: other Chief complaint: Syncope, cardiopulmonary arrest. History of present illness: Pulmonary consult dated November 20, 2023. 78-year-old female who was brought in by EMS to the emergency department on November 18. The patient had either a syncopal episode, or brief episode of cardiopulmonary arrest. The patient apparently passed out after she bent over to feed her cat. Apparently there was bystander CPR for a period of time until EMS arrived. When EMS arrived, they were vital signs, with a heart rate of 70. She apparently was alert and speaking at that time. In transport to the ER, she apparently developed heart block and, she was treated with epinephrine, and transthoracic pacing. In the emergency room, she was able to give some details. The patient was seen in the emergency department, trauma room #1. The patient is currently on oxygen, 4 L. Saturations are 99%. The patient was not able to give any additional history. She was initially placed on dopamine as per cardiology but but that has been weaned off. Her vital signs currently include blood pressure 148/70 heart rate 61 respiratory rate 14. Her primary care physician is Dr. Robledo, but she also sees Dr. Garsia and Dr. Sánchez. Patient appears in no acute distress. Current labs include a white count 8.5, hemoglobin 13.5, hematocrit 46.1, and a normal platelet count. Coagulation studies are normal. Sodium 140, potassium 5, chlorides 103, CO2 30, BUN 32, and creatinine 1.74. Glucose 155. Troponins were 0.016, 0.017, and 0.032. TSH is elevated at 7.640. EKG here in the hospital shows a first-degree heart block. Chest x-ray may show a right upper lobe medial infiltrate. Review of Systems REVIEW OF SYSTEMS: CONSTITUTIONAL: [Negative.] NEUROLOGIC: Syncope. HEENT: [ Negative.] CARDIAC: Possible brief cardiopulmonary arrest. PULMONARY: [Negative.] GI: [Negative.] : [Negative.] RHEUMATOLOGIC: [ Negative.] IMMUNOLOGIC: [ Negative.] ENDOCRINE: [Negative. ] DERMATOLOGIC: [Negative.] Past Medical History Past Medical History: Chest Pain / Angina, COPD, GERD/Reflux, Hypertension, Osteoarthritis (OA), Thyroid Disorder Additional Past Medical History / Comment(s): Abnormal ekf. Anemia, murmur, pain upper shoulder blades/upper back, and throat pressure, COLITIS (PERIODIC SEVERE PAIN & DIARRHEA). History of Any Multi-Drug Resistant Organisms: None Reported Past Surgical History: Bariatric Surgery, Cholecystectomy, Heart Catheterization, Joint Replacement, Orthopedic Surgery, Tubal Ligation Additional Past Surgical History / Comment(s): 04-09-15 LT HEART CATH W/STENT PLACED TO MID LAD ,USED RT RADIAL APPROACH. OTHER PAST SX INCLUDES: STOMACH STAPLING. DISCECTOMY TO NECK. RECONSTRUCTIVE STOMACH SURG, total R shoulder replaced, R total knee. Past Anesthesia/Blood Transfusion Reactions: Motion Sickness Additional Past Anesthesia/Blood Transfusion Reaction / Comment(s): CLAUSTERPHOBIA Smoking Status: Current every day smoker, Vaper - Past Family History Mother Additional Family Medical History / Comment(s): heart problems Father Additional Family Medical History / Comment(s): heart problems Brother(s) Family Medical History: Myocardial Infarction ([place]) Additional Family Medical History / Comment(s): of [place] at 59 yrs. Daughter(s) Family Medical History: Myocardial Infarction ([place]) Additional Family Medical History / Comment(s): obesity,lung problems, from [place] at 46yrs. Medications and Allergies Home Medications Medication Instructions Recorded Confirmed Type Folic Acid 1 mg PO DAILY 01/05/14 11/20/23 History Levothyroxine Sodium [Synthroid] 88 mcg PO DAILY 01/05/14 11/20/23 History Aspirin [Adult Low Dose Aspirin EC] 81 mg PO DAILY 02/18/23 11/20/23 History Escitalopram Oxalate [Lexapro] 10 mg PO DAILY 02/18/23 11/20/23 History Gabapentin 300 mg PO BID 02/18/23 11/20/23 History Metoprolol Tartrate [Lopressor] 100 mg PO BID 02/18/23 11/20/23 History Nitroglycerin 0.4 mg SL Q5M PRN 02/18/23 11/20/23 History Pantoprazole [Protonix] 40 mg PO DAILY 02/18/23 11/20/23 History clonazePAM 0.75 mg PO HS 02/18/23 11/20/23 History Amiodarone [Cordarone] 200 mg PO DAILY 11/20/23 11/20/23 History Apixaban [Eliquis] 5 mg PO BID 11/20/23 11/20/23 History Atorvastatin Calcium [Lipitor] 40 mg PO HS 11/20/23 11/20/23 History Budesonide/Formoterol Fumarate 2 puff INHALATION RT-BID 11/20/23 11/20/23 History [Symbicort 160-4.5 Mcg Inhaler] Cyanocobalamin [Vitamin B-12 1,000 mcg SQ Q14D 11/20/23 11/20/23 History Injection] Denosumab [Prolia] 60 mg SQ Q180D 11/20/23 11/20/23 History Furosemide [Lasix] 40 mg PO DAILY 11/20/23 11/20/23 History oxyCODONE-APAP 7.5-325MG [Percocet 1 tab PO QID 11/20/23 11/20/23 History 7.5-325 mg] Allergies Allergy/AdvReac Type Severity Reaction Status Date / Time codeine Allergy cannot Verified 11/20/23 09:26 move muscles Physical Exam Osteopathic Statement: *. No significant issues noted on an osteopathic structural exam other than those noted in the History and Physical/Consult. Vitals: Vital Signs Pulse Pulse Resp BP Pulse Ox 11/20/23 09:48 59 L 16 155/82 97 11/20/23 08:16 60 18 141/76 99 11/20/23 06:40 63 13 146/72 99 11/20/23 06:30 62 14 146/72 99 11/20/23 06:20 59 L 13 146/72 100 11/20/23 05:30 60 13 128/71 99 11/20/23 05:20 67 13 128/71 98 11/20/23 05:00 61 13 121/76 99 11/20/23 04:40 61 12 117/76 99 11/20/23 04:30 56 L 13 133/75 98 11/20/23 04:10 61 7 L 124/77 99 11/20/23 04:00 60 11 L 144/75 99 11/20/23 03:40 60 12 154/74 99 11/20/23 03:30 60 11/20/23 03:20 61 10 L 168/80 98 11/20/23 03:10 63 9 L 141/79 99 11/20/23 03:00 69 16 138/78 96 11/20/23 02:50 66 23 138/78 97 07/20/24 02:40 70 16 157/109 96 11/20/23 02:30 65 15 163/80 94 L 11/20/23 02:20 59 L 11 L 163/80 99 11/20/23 02:10 60 10 L 159/81 99 11/20/23 02:00 60 11 L 161/85 99 11/20/23 01:40 60 12 145/75 99 11/20/23 01:20 61 11 L 149/82 100 11/20/23 01:15 60 14 149/82 11/20/23 01:10 60 13 128/67 99 11/20/23 01:00 62 12 99 11/20/23 00:50 60 11 L 131/73 99 11/20/23 00:40 61 11 L 138/78 99 11/20/23 00:30 59 L 13 99 11/20/23 00:28 63 18 139/75 100 11/19/23 23:15 60 12 141/81 11/19/23 22:15 58 L 14 105/61 11/19/23 21:45 61 16 92/48 100 11/19/23 21:41 98 11/19/23 21:31 67 20 121/62 100 11/19/23 21:22 63 58 L 18 11/19/23 21:18 70 20 119/73 100 Intake and Output 11/19/23 11/20/23 11/20/23 22:59 06:59 14:59 Other: Weight 80.195 kg No acute distress, oriented 3. Currently on 4 L. HEENT examination is grossly unremarkable. Mucous membranes are moist. No oral lesions. Neck supple. Full range of motion. No adenopathy thyromegaly or neck vein distention. Cardiovascular examination reveals regular rhythm rate. S1-S2 normal. No S3 or S4. No discernible murmur noted. Heart rate 64 bpm. Lungs reveal clear breath sounds. Breath sounds are equal bilaterally. No adventitious lung sounds including wheezes rhonchi or crackles. Abdomen soft bowel sounds are heard. No masses or tenderness. Extremities are intact. No cyanosis clubbing or edema. Skin is without rash or lesion. Neurologic examination is brief but nonfocal. Results - Laboratory Findings CBC and BMP: 11/19/23 21:17 11/19/23 21:17 PT/INR, D-dimer PT 11.3 sec (10.0-12.5) 11/19/23 21:17 INR 1.0 (<1.2) 11/19/23 21:17 Abnormal lab findings: Abnormal Labs 11/19/23 11/19/23 11/19/23 21:17 21:17 21:17 Hct 46.1 H MCHC 29.3 L BUN 32 H Creatinine 1.74 H Glucose 155 H Calcium 8.2 L AST 43 H Total Protein 5.7 L Albumin 3.4 L TSH 7.640 H - Diagnostic Findings Chest x-ray: image reviewed Assessment and Plan Assessment: Syncope, versus brief cardiopulmonary arrest, with bystander CPR. Third-degree heart block, treated with epinephrine, and external pacing. History of CAD with previous stent. Possible underlying mild COPD. Gastroesophageal reflux disease. History of hypertension. History of osteoarthritis. Hypothyroidism, not optimally treated. History of anemia. Plan: Plan dated November 28, 2023. The patient is seen in the emergency department. The patient was on 4 L of oxygen. Saturations were 99%. Blood pressure was 148/70. Heart rate was 61. Respiratory rate was 14. She was afebrile. The patient was no longer on dopamine. She was getting saline at 75 cc an hour. Labs, x-rays, medications are reviewed. 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 The patient's TSH is high, so she may not be taking her thyroid replacement therapy. That should be addressed by the primary service. No additional recommendations at this time. Time with Patient: Greater than 30
[2023-11-20 11:58] LABS: T4, Free (Free Thyroxine) 2.34 ng/dL (0.78-2.19)
--- NOTE | 2023-11-20 12:02 | P.CRDCN ---
History of Present Illness History of present illness: HISTORY OF PRESENT ILLNESS: This is a 78-year-old female with a past medical history significant for coronary artery disease with previous stenting of the LAD, cardiomyopathy with recovered EF, valvular heart disease, hypertension, hyperlipidemia, paroxysmal atrial fibrillation, and pulmonary embolism. Patient follows in the office with Dr. Alfonso. We have been asked to see the patient in consultation for symptomatic bradycardia. Patient examined at the bedside in the emergency room. Patient's granddaughter is present. Apparently yesterday the patient had made dinner and afterwards she was standing in the kitchen when she passed out to the floor. Her family member states that she did hit her head. She was unconscious and the feeling member called 911 and was instructed to do CPR over the phone. EMS arrived and transported the patient to the hospital. En route to the [facility], the patient developed third-degree heart block and was treated with epinephrine and temporary pacing. The patient was also started on IV dopamine in the emergency room which has since been discontinued. The patient is on high-dose beta-blockers outpatient with metoprolol 100 mg twice a day. Patient also states that she was recently at [facility] and was diagnosed with bilateral pulmonary embolisms and started on Eliquis. She states at that time she also had issues with atrial fibrillation and was started on amiodarone which she has been tapering down at home. She states that she is currently on once a day dosing but is unsure if it is 100 or 200 mg. She does report she has had episodes in the past of uncontrolled tachycardia. The patient also gives additional history that prior to being admitted to [facility] she had a syncopal episode about 2 weeks prior to being in the hospital. DIAGNOSTICS: - EKG reveals sinus mechanism with left bundle branch block. - Chest xray right upper lung medial increased airspace opacities - Laboratory data: WBC 8.5. Hemoglobin 13.5. Platelet count 201. Sodium 140. Potassium 5.0. BUN 32. Creatinine 1.74. [place] negative x 3. - Current home cardiac medications include Lipitor 40 mg at night, amiodarone 200 mg daily, Lasix 40 mg daily, Eliquis 5 mg twice a day, metoprolol tartrate 100 mg twice a day, aspirin 81 mg daily. - Most recent echocardiogram obtained in October 2023 revealed normal EF, severe pulmonary hypertension, mild AR, moderate to severe TR, mild MR -Patient underwent Lexiscan stress test in May 2020 which was negative for ischemia - Cardiac catheterization history: January 2023 revealing patent stent in the mid LAD REVIEW OF SYSTEMS: At the time of my exam: CONSTITUTIONAL: Denies fever or chills. HEENT: Denies blurred vision, vision changes, or eye pain. Denies hemoptysis CARDIOVASCULAR: Denies chest pain. Denies orthopnea. Denies PND. Denies palpitations RESPIRATORY: Denies shortness of breath. GASTROINTESTINAL: Denies abdominal pain. Denies nausea or vomiting. HEMATOLOGIC: Denies bleeding disorders. GENITOURINARY: Denies any blood in urine. SKIN: Denies pruitis. Denies rash. PHYSICAL EXAM: VITAL SIGNS: Reviewed. GENERAL: Well-developed in no acute distress. HEENT: Head is normocephalic. Pupils are equal, round. Sclerae anicteric. Mucous membranes of the mouth are moist. Neck supple. No JVD or thyromegaly LUNGS: Respirations even and unlabored. Lungs essentially clear to auscultation bilaterally. HEART: Regular rate and rhythm. S1 and S2 heard. Systolic murmur noted. ABDOMEN: Soft. Nondistended. Nontender. EXTREMITIES: Normal range of motion. No clubbing or cyanosis. Peripheral pulses intact. No lower extremity edema NEUROLOGIC: Awake and alert. Oriented x 3. ASSESSMENT: Syncope secondary to complete heart block History of recent syncopal episode prior to being started on amiodarone Paroxysmal atrial fibrillation Recent diagnosis of bilateral pulmonary embolism at [place], on Eliquis outpatient Acute kidney injury Coronary artery disease with previous stenting of the LAD Valvular heart disease Hypertension Hyperlipidemia PLAN: Obtain 2D echo to assess cardiac structure and function Resume anticoagulation with Eliquis. Dose adjusted secondary to decreased renal function Check TSH Hold metoprolol Continue amiodarone 200 mg daily in attempt to maintain sinus mechanism Continue telemetry monitoring Plan for permanent pacemaker insertion on Wednesday with Dr. Felix Patient may be downgraded to 3 S. Further recommendations pending patient course Nurse practitioner note has been reviewed by physician. Signing provider agrees with the documented findings, assessment, and plan of care documented by CULINARY ASSISTANT as a scribe. Past Medical History Past Medical History: Chest Pain / Angina, COPD, GERD/Reflux, Hypertension, Osteoarthritis (OA), Thyroid Disorder Additional Past Medical History / Comment(s): Abnormal ekf. Anemia, murmur, pain upper shoulder blades/upper back, and throat pressure, COLITIS (PERIODIC SEVERE PAIN & DIARRHEA). History of Any Multi-Drug Resistant Organisms: None Reported Past Surgical History: Bariatric Surgery, Cholecystectomy, Heart Catheterization, Joint Replacement, Orthopedic Surgery, Tubal Ligation Additional Past Surgical History / Comment(s): 04-09-15 LT HEART CATH W/STENT PLACED TO MID LAD ,USED RT RADIAL APPROACH. OTHER PAST SX INCLUDES: STOMACH STAPLING. DISCECTOMY TO NECK. RECONSTRUCTIVE STOMACH SURG, total R shoulder replaced, R total knee. Past Anesthesia/Blood Transfusion Reactions: Motion Sickness Additional Past Anesthesia/Blood Transfusion Reaction / Comment(s): CLAUSTERPHOBIA Smoking Status: Current every day smoker, Vaper - Past Family History Mother Additional Family Medical History / Comment(s): heart problems Father Additional Family Medical History / Comment(s): heart problems Brother(s) Family Medical History: Myocardial Infarction ([place]) Additional Family Medical History / Comment(s): of [place] at 59 yrs. Daughter(s) Family Medical History: Myocardial Infarction ([place]) Additional Family Medical History / Comment(s): obesity,lung problems, from [place] at 46yrs. Medications and Allergies Home Medications Medication Instructions Recorded Confirmed Type Folic Acid 1 mg PO DAILY 01/05/14 11/20/23 History Levothyroxine Sodium [Synthroid] 88 mcg PO DAILY 01/05/14 11/20/23 History Aspirin [Adult Low Dose Aspirin EC] 81 mg PO DAILY 02/18/23 11/20/23 History Escitalopram Oxalate [Lexapro] 10 mg PO DAILY 02/18/23 11/20/23 History Gabapentin 300 mg PO BID 02/18/23 11/20/23 History Metoprolol Tartrate [Lopressor] 100 mg PO BID 02/18/23 11/20/23 History Nitroglycerin 0.4 mg SL Q5M PRN 02/18/23 11/20/23 History Pantoprazole [Protonix] 40 mg PO DAILY 02/18/23 11/20/23 History clonazePAM 0.75 mg PO HS 02/18/23 11/20/23 History Amiodarone [Cordarone] 200 mg PO DAILY 11/20/23 11/20/23 History Apixaban [Eliquis] 5 mg PO BID 11/20/23 11/20/23 History Atorvastatin Calcium [Lipitor] 40 mg PO HS 11/20/23 11/20/23 History Budesonide/Formoterol Fumarate 2 puff INHALATION RT-BID 11/20/23 11/20/23 History [Symbicort 160-4.5 Mcg Inhaler] Cyanocobalamin [Vitamin B-12 1,000 mcg SQ Q14D 11/20/23 11/20/23 History Injection] Denosumab [Prolia] 60 mg SQ Q180D 11/20/23 11/20/23 History Furosemide [Lasix] 40 mg PO DAILY 11/20/23 11/20/23 History oxyCODONE-APAP 7.5-325MG [Percocet 1 tab PO QID 11/20/23 11/20/23 History 7.5-325 mg] Allergies Allergy/AdvReac Type Severity Reaction Status Date / Time codeine Allergy cannot Verified 11/20/23 09:26 move muscles Physical Exam Vitals: Vital Signs Pulse Pulse Resp BP Pulse Ox 11/20/23 09:48 59 L 16 155/82 97 11/20/23 08:16 60 18 141/76 99 11/20/23 06:40 63 13 146/72 99 11/20/23 06:30 62 14 146/72 99 11/20/23 06:20 59 L 13 146/72 100 11/20/23 05:30 60 13 128/71 99 11/20/23 05:20 67 13 128/71 98 11/20/23 05:00 61 13 121/76 99 11/20/23 04:40 61 12 117/76 99 11/20/23 04:30 56 L 13 133/75 98 11/20/23 04:10 61 7 L 124/77 99 11/20/23 04:00 60 11 L 144/75 99 11/20/23 03:40 60 12 154/74 99 11/20/23 03:30 60 11/20/23 03:20 61 10 L 168/80 98 11/20/23 03:10 63 9 L 141/79 99 11/20/23 03:00 69 16 138/78 96 11/20/23 02:50 66 23 138/78 97 11/20/23 02:40 70 16 157/109 96 11/20/23 02:30 65 15 163/80 94 L 11/20/23 02:20 59 L 11 L 163/80 99 11/20/23 02:10 60 10 L 159/81 99 11/20/23 02:00 60 11 L 161/85 99 11/20/23 01:40 60 12 145/75 99 11/20/23 01:20 61 11 L 149/82 100 11/20/23 01:15 60 14 149/82 11/20/23 01:10 60 13 128/67 99 11/20/23 01:00 62 12 99 11/20/23 00:50 60 11 L 131/73 99 11/20/23 00:40 61 11 L 138/78 99 11/20/23 00:30 59 L 13 99 11/20/23 00:28 63 18 139/75 100 11/19/23 23:15 60 12 141/81 11/19/23 22:15 58 L 14 105/61 11/19/23 21:45 61 16 92/48 100 11/19/23 21:41 98 11/19/23 21:31 67 20 121/62 100 11/19/23 21:22 63 58 L 18 11/19/23 21:18 70 20 119/73 100 Intake and Output 11/19/23 11/20/23 11/20/23 22:59 06:59 14:59 Other: Weight 80.195 kg Results 11/19/23 21:17 11/19/23 21:17 Cardiac Enzymes 11/19/23 11/19/23 11/20/23 Range/Units 21:17 21:17 01:35 AST 43 H (14-36) U/L Troponin I 0.016 0.017 (0.000-0.034) ng/mL 11/20/23 Range/Units 05:15 AST (14-36) U/L Troponin I 0.032 (0.000-0.034) ng/mL Coagulation 11/19/23 Range/Units 21:17 PT 11.3 (10.0-12.5) sec APTT 25.1 (22.0-30.0) sec CBC 11/19/23 Range/Units 21:17 WBC 8.5 (3.8-10.6) k/uL RBC 4.98 (3.80-5.40) m/uL Hgb 13.5 (11.4-16.0) gm/dL Hct 46.1 H (34.0-46.0) % Plt Count 201 (150-450) k/uL Comprehensive Metabolic Panel 11/19/23 Range/Units 21:17 Sodium 140 (137-145) mmol/L Potassium 5.0 (3.5-5.1) mmol/L Chloride 103 (98-107) mmol/L Carbon Dioxide 30 (22-30) mmol/L BUN 32 H (7-17) mg/dL Creatinine 1.74 H (0.52-1.04) mg/dL Glucose 155 H (74-99) mg/dL Calcium 8.2 L (8.4-10.2) mg/dL AST 43 H (14-36) U/L ALT 19 (4-34) U/L Alkaline Phosphatase 62 (38-126) U/L Total Protein 5.7 L (6.3-8.2) g/dL Albumin 3.4 L (3.5-5.0) g/dL Current Medications Generic Name Dose Route Start Last Admin Trade Name Freq PRN Reason Stop Dose Admin Acetaminophen 650 mg 11/20/23 09:37 Acetaminophen Tab 325 Mg Tab PO Q6HR PRN Mild Pain or Fever > 100.5 Hydrocodone Bitart/Acetaminophen 1 each 11/20/23 01:04 Hydrocodone/Apap 7.5-325mg 1 Each Tab PO Q6H PRN Pain Amiodarone HCl 200 mg 11/20/23 09:12 11/20/23 09:49 Amiodarone 200 Mg Tab PO 200 mg DAILY SCAR Administration Apixaban 2.5 mg 11/20/23 09:30 11/20/23 09:50 Apixaban 2.5 Mg Tablet PO 2.5 mg BID SCAR Administration Protocol Aspirin 81 mg 11/20/23 09:00 11/20/23 08:23 Aspirin 81 Mg PO 81 mg QAM SCAR Administration Atorvastatin Calcium 40 mg 11/20/23 09:00 11/20/23 08:23 Atorvastatin 20 Mg Tab PO 40 mg QAM SCAR Administration Budesonide/Formoterol Fumarate 2 puff 11/20/23 08:00 Symbicort 80-4.5 Mcg Inhaler INHALATION RT-BID PRN Shortness Of Breath Or Wheezing Cholecalciferol 50 mcg 11/20/23 09:00 11/20/23 08:23 Cholecalciferol 25 Mcg (1000 Iu) Tablet PO 50 mcg DAILY SCAR Administration Clonazepam 0.75 mg 11/20/23 21:00 Clonazepam 0.5 Mg Tab PO HS SCAR Gabapentin 600 mg 11/20/23 09:00 11/20/23 08:23 Gabapentin 300 Mg Cap PO 600 mg TID SCAR Administration Sodium Chloride 1,000 mls @ 75 mls/hr 11/20/23 09:45 11/20/23 10:03 Saline 0.9% IV 75 mls/hr .[id number] SCAR Administration Isosorbide Mononitrate 30 mg 11/20/23 09:00 11/20/23 08:23 Isosorbide Mononitrate Er 30 Mg Tab.Er.24h PO 30 mg QAM SCAR Administration Levothyroxine Sodium 88 mcg 11/20/23 06:30 11/20/23 06:51 Levothyroxine 88 Mcg Tab PO 88 mcg QAM@0630 SCAR Administration Nitroglycerin 0.4 mg 11/20/23 01:01 Nitroglycerin Sl Tabs 0.4 Mg Tab SUBLINGUAL Q5M PRN Chest Pain Oxybutynin Chloride 15 mg 11/20/23 09:00 11/20/23 08:23 Oxybutynin 15 Mg Tab.Er.24 PO 15 mg QAM SCAR Administration Pantoprazole Sodium 40 mg 11/20/23 09:00 11/20/23 08:23 Pantoprazole 40 Mg Tablet PO 40 mg QAM SCAR Administration Intake and Output 11/19/23 11/20/23 11/20/23 22:59 06:59 14:59 Other: Weight 80.195 kg 11/19/23 21:17 11/19/23 21:17
--- NOTE | 2023-11-20 13:03 | CA ---
Transthoracic Echo Report Name: Yuliya Harden Age: 78 Gender: F : 1945 Exam Date: 11/20/2023 10:56 Exam Location: [facility] Ht (in): 67 Wt (lb): 176 Ordering Physician: Katie Childers Attending/Referring Phys: [id number], Liseth Plate Grinder Mariana Salazar RDCS Procedure CPT: Indications: LV function, intermittent heart block Cardiac Hx: Technical Quality: Fair Contrast 1: Total Dose (mL): Contrast 2: Total Dose (mL): MEASUREMENTS (Male / Female) Normal Values 2D ECHO LV Diastolic Diameter PLAX 4.6 cm 4.2 - 5.9 / 3.9 - 5.3 cm LV Systolic Diameter PLAX 3.1 cm IVS Diastolic Thickness 0.9 cm 0.6 - 1.0 / 0.6 - 0.9 cm LVPW Diastolic Thickness 1.1 cm 0.6 - 1.0 / 0.6 - 0.9 cm LV Relative Wall Thickness 0.4 RV Internal Dim ED PLAX 4.2 cm LVOT Diameter 1.6 cm LA Volume 71.8 cm??? 18 - 58 / 22 - 52 cm??? LA Volume Index 36.6 cm???/m??? 16 - 28 cm???/m??? DOPPLER AV Peak Velocity 184.1 cm/s AV Peak Gradient 13.6 mmHg AV Mean Velocity 130.3 cm/s AV Mean Gradient 7.6 mmHg AV Velocity Time Integral 38.2 cm LVOT Peak Velocity 96.9 cm/s LVOT Peak Gradient 3.8 mmHg LVOT Velocity Time Integral 20.6 cm LVOT Stroke Volume 42.0 cm??? LVOT Stroke Volume Index 21.9 ml/m??? LVOT Cardiac Index 1285.3 cm???/min???m??? AV Area Cont Eq vti 1.1 cm??? AV Area Cont Eq pk 1.1 cm??? MV Area PHT 2.5 cm??? Mitral E Point Velocity 72.8 cm/s Mitral A Point Velocity 81.8 cm/s Mitral E to A Ratio 0.9 MV Deceleration Time 305.6 ms MV E' Velocity 3.7 cm/s Mitral E to MV E' Ratio 19.8 TR Peak Velocity 236.8 cm/s TR Peak Gradient 22.4 mmHg Right Ventricular Systolic Press 25.9 mmHg FINDINGS Left Ventricle Mildly increased left ventricular wall thickness. Left ventricular cavity size normal. No obvious regional wall motion abnormalities. Left ventricular ejection fraction is estimated at 50-55 %. Grade 1 diastolic dysfunction. Right Ventricle Right ventricular dilatation. Right ventricular systolic pressure within normal limits. Right Atrium Mild right atrial dilatation. Left Atrium Moderately increased left atrial volume. Mildly increased left atrial area. Mitral Valve Structurally normal mitral valve. Mitral valve thickened. Mild mitral annular calcification. Mild mitral regurgitation. Aortic Valve Trileaflet aortic valve. No aortic valve stenosis or regurgitation. Tricuspid Valve Structurally normal tricuspid valve. Mild tricuspid regurgitation. Pulmonic Valve Trace pulmonic regurgitation. Pericardium No pericardial effusion. Aorta Normal size aortic root and proximal ascending aorta. CONCLUSIONS LVH with preserved systolic function Septal bounce consistent with IVCD/left bundle branch block pattern Previewed by: Dr. Freeman Felix MD (Electronically Signed) Final Date: 20 November 2023 13:02
[2023-11-20] MEDS: HYDROcodone/APAP 7.5-325MG 1 EACH TAB PO PRN (14:04)
--- NOTE | 2023-11-20 18:10 | P.HPIM ---
History of Present Illness H&P Date: 11/20/23 History of present illness; 78-year-old female with past medical history significant coronary artery disease/stents, cardiomyopathy with recovered EF, hypertension, hyperlipidemia, paroxysmal A-fib and pulmonary embolism on Eliquis, valvular heart disease who presented to hospital after syncopal episode. Apparently patient had made dinner and afterward she passed out on the floor while she was standing. Did hit her head. Patient was unconscious, family member called 911 and was instructed to do CPR over the phone. En route to the hospital by EMS patient developed third-degree heart block and was treated with epinephrine and temporary pacing. Patient also was started on IV dopamine in the ER which was later discontinued. Patient was on metoprolol 100 mg twice daily at home. Patient reported that she was recently at [facility] and was diagnosed with bilateral pulmonary embolism and was started on Eliquis. Patient also had issues with atrial fibrillation and started on amiodarone tapering dose. Patient also reported palpitation and tachycardia at home. EKG showed Sinus rhythm with left bundle branch block. Chest x-ray showed right upper lung increased airspace opacities. Labs: WBCs 8.5, hemoglobin 13.5, platelet 201. BMP was remarkable for BUN 32, creatinine 1.74. Troponin negative x 3. Most recent echo showed normal EF, severe pulmonary hypertension, mild AR, mo derate to severe TR in October 2023. Last stress test in 2020 was negative for ischemia. Last carotid catheterization in January 2023 showed patent stent in the mid LAD. REVIEW OF SYSTEMS: CONSTITUTIONAL: No fever, no malaise, no fatigue. HEENT: No recent visual problems or hearing problems. Denied any sore throat. CARDIOVASCULAR: No chest pain, orthopnea, PND, no palpitations, no syncope. PULMONARY: No shortness of breath, no cough, no hemoptysis. GASTROINTESTINAL: No diarrhea, no nausea, no vomiting, no abdominal pain. NEUROLOGICAL: No headaches, no weakness, no numbness. HEMATOLOGICAL: Denies any bleeding or petechiae. GENITOURINARY: Denies any burning micturition, frequency, or urgency. MUSCULOSKELETAL/RHEUMATOLOGICAL: Denies any joint pain, swelling, or any muscle pain. ENDOCRINE: Denies any polyuria or polydipsia. The rest of the 14-point review of systems is negative. PHYSICAL EXAMINATION: GENERAL: The patient is alert and oriented x3, not in any acute distress. Well developed, well nourished. HEENT: Pupils are round and equally reacting to light. EOMI. No scleral icterus. No conjunctival pallor. Normocephalic, atraumatic. No pharyngeal erythema. No thyromegaly. CARDIOVASCULAR: S1 and S2 present. No murmurs, rubs, or gallops. PULMONARY: Chest is clear to auscultation, no wheezing or crackles. ABDOMEN: Soft, nontender, nondistended, normoactive bowel sounds. No palpable organomegaly. MUSCULOSKELETAL: No joint swelling or deformity. EXTREMITIES: No cyanosis, clubbing, or pedal edema. NEUROLOGICAL: Gross neurological examination did not reveal any focal deficits. SKIN: No rashes. Assessment and plan Syncope: Complete heart block: Paroxysmal atrial fibrillation: History of CAD/PCI: History of cardiomyopathy with recovered EF: Presented after syncopal episode. Was found to have third degree heart block. Cardiology consulted Hold metoprolol, continue amiodarone 200 mg daily Telemetry monitoring Cardiology planning for permanent pacemaker on Wednesday. Acute kidney injury: Hold nephrotoxic Monitor renal function Gentle hydration. Recent bilateral PE: Continue Eliquis 5 mg twice daily. DVT prophylaxis. AC Dictation was produced using [employer] dictation software. please excuse any grammatical, word or spelling errors. Past Medical History Past Medical History: Chest Pain / Angina, COPD, GERD/Reflux, Hypertension, Osteoarthritis (OA), Thyroid Disorder Additional Past Medical History / Comment(s): Anemia, murmur, pain upper shoulder blades/upper back, and throat pressure, COLITIS (PERIODIC SEVERE PAIN & DIARRHEA). History of Any Multi-Drug Resistant Organisms: None Reported Past Surgical History: Bariatric Surgery, Cholecystectomy, Heart Catheterization, Joint Replacement, Orthopedic Surgery, Tubal Ligation Additional Past Surgical History / Comment(s): 04-09-15 LT HEART CATH W/STENT PL ACED TO MID LAD ,USED RT RADIAL APPROACH. OTHER PAST SX INCLUDES: STOMACH STAPLING. DISCECTOMY TO NECK. RECONSTRUCTIVE STOMACH SURG, total R shoulder replaced, R total knee. Past Anesthesia/Blood Transfusion Reactions: Motion Sickness Additional Past Anesthesia/Blood Transfusion Reaction / Comment(s): clausterphobic Past Psychological History: Anxiety Smoking Status: Former smoker, Vaper Past Alcohol Use History: None Reported Additional Past Alcohol Use History / Comment(s): Pt started smoking in 1959 and has quit several times for lengthy periods of time (years), last quit one month ago. Past Drug Use History: None Reported - Past Family History Mother Additional Family Medical History / Comment(s): heart problems Father Additional Family Medical History / Comment(s): heart problems Brother(s) Family Medical History: Myocardial Infarction (CA) Additional Family Medical History / Comment(s): of CA at 59 yrs. Daughter(s) Family Medical History: Myocardial Infarction ([place]) Additional Family Medical History / Comment(s): obesity,lung problems, from [place] at 46yrs. Medications and Allergies Home Medications Medication Instructions Recorded Confirmed Type Folic Acid 1 mg PO DAILY 01/05/14 11/20/23 History Levothyroxine Sodium [Synthroid] 88 mcg PO DAILY 01/05/14 11/20/23 History Aspirin [Adult Low Dose Aspirin EC] 81 mg PO DAILY 02/18/23 11/20/23 History Escitalopram Oxalate [Lexapro] 10 mg PO DAILY 02/18/23 11/20/23 History Gabapentin 300 mg PO BID 02/18/23 11/20/23 History Metoprolol Tartrate [Lopressor] 100 mg PO BID 02/18/23 11/20/23 History Nitroglycerin 0.4 mg SL Q5M PRN 02/18/23 11/20/23 History Pantoprazole [Protonix] 40 mg PO DAILY 02/18/23 11/20/23 History clonazePAM 0.75 mg PO HS 02/18/23 11/20/23 History Amiodarone [Cordarone] 200 mg PO DAILY 11/20/23 11/20/23 History Apixaban [Eliquis] 5 mg PO BID 11/20/23 11/20/23 History Atorvastatin Calcium [Lipitor] 40 mg PO HS 11/20/23 11/20/23 History Budesonide/Formoterol Fumarate 2 puff INHALATION RT-BID 11/20/23 11/20/23 History [Symbicort 160-4.5 Mcg Inhaler] Cyanocobalamin [Vitamin B-12 1,000 mcg SQ Q14D 11/20/23 11/20/23 History Injection] Denosumab [Prolia] 60 mg SQ Q180D 11/20/23 11/20/23 History Furosemide [Lasix] 40 mg PO DAILY 11/20/23 11/20/23 History oxyCODONE-APAP 7.5-325MG [Percocet 1 tab PO QID 11/20/23 11/20/23 History 7.5-325 mg] Allergies Allergy/AdvReac Type Severity Reaction Status Date / Time codeine Allergy cannot Verified 11/20/23 09:26 move muscles Physical Exam Vitals: Vital Signs Temp Pulse Pulse Pulse Resp BP BP 11/20/23 16:08 98.9 F 67 16 107/69 11/20/23 14:00 16 11/20/23 13:00 98.2 F 55 L 16 124/70 11/20/23 12:36 97.8 F 11/20/23 12:19 98.0 F 63 18 122/73 11/20/23 09:48 59 L 16 155/82 11/20/23 08:16 60 18 141/76 11/20/23 06:40 63 13 146/72 11/20/23 06:30 62 14 146/72 11/20/23 06:20 59 L 13 146/72 11/20/23 05:30 60 13 128/71 11/20/23 05:20 67 13 128/71 11/20/23 05:00 61 13 121/76 11/20/23 04:40 61 12 117/76 11/20/23 04:30 56 L 13 133/75 11/20/23 04:10 61 7 L 124/77 11/20/23 04:00 60 11 L 144/75 11/20/23 03:40 60 12 154/74 11/20/23 03:30 60 11/20/23 03:20 61 10 L 168/80 11/20/23 03:10 63 9 L 141/79 11/20/23 03:00 69 16 138/78 11/20/23 02:50 66 23 138/78 11/20/23 02:40 70 16 157/109 11/20/23 02:30 65 15 163/80 11/20/23 02:20 59 L 11 L 163/80 11/20/23 02:10 60 10 L 159/81 11/20/23 02:00 60 11 L 161/85 11/20/23 01:40 60 12 145/75 11/20/23 01:20 61 11 L 149/82 11/20/23 01:15 60 14 149/82 11/20/23 01:10 60 13 128/67 11/20/23 01:00 62 12 11/20/23 00:50 60 11 L 131/73 11/20/23 00:40 61 11 L 138/78 11/20/23 00:30 59 L 13 11/20/23 00:28 63 18 139/75 11/19/23 23:15 60 12 141/81 11/19/23 22:15 58 L 14 105/61 11/19/23 21:45 61 16 92/48 11/19/23 21:41 11/19/23 21:31 67 20 121/62 11/19/23 21:22 63 58 L 18 11/19/23 21:18 70 20 119/73 Pulse Ox 11/20/23 16:08 96 11/20/23 14:00 11/20/23 13:00 93 L 11/20/23 12:36 11/20/23 12:19 96 11/20/23 09:48 97 11/20/23 08:16 99 11/20/23 06:40 99 11/20/23 06:30 99 11/20/23 06:20 100 11/20/23 05:30 99 11/20/23 05:20 98 11/20/23 05:00 99 11/20/23 04:40 99 11/20/23 04:30 98 11/20/23 04:10 99 11/20/23 04:00 99 11/20/23 03:40 99 11/20/23 03:30 11/20/23 03:20 98 11/20/23 03:10 99 11/20/23 03:00 96 11/20/23 02:50 97 11/20/23 02:40 96 11/20/23 02:30 94 L 11/20/23 02:20 99 11/20/23 02:10 99 11/20/23 02:00 99 11/20/23 01:40 99 11/20/23 01:20 100 11/20/23 01:15 11/20/23 01:10 99 11/20/23 01:00 99 11/20/23 00:50 99 11/20/23 00:40 99 11/20/23 00:30 99 11/20/23 00:28 100 11/19/23 23:15 11/19/23 22:15 11/19/23 21:45 100 11/19/23 21:41 98 11/19/23 21:31 100 11/19/23 21:22 11/19/23 21:18 100 Intake and Output 11/20/23 11/20/23 11/20/23 06:59 14:59 22:59 Other: Weight 80.195 kg Results CBC & Chem 7: 11/19/23 21:17 11/19/23 21:17 Labs: Abnormal Lab Results - Last 24 Hours (Table) 11/19/23 11/19/23 11/19/23 Range/Units 21:17 21:17 21:17 Hct 46.1 H (34.0-46.0) % MCHC 29.3 L (31.0-37.0) g/dL BUN 32 H (7-17) mg/dL Creatinine 1.74 H (0.52-1.04) mg/dL Glucose 155 H (74-99) mg/dL Calcium 8.2 L (8.4-10.2) mg/dL AST 43 H (14-36) U/L Total Protein 5.7 L (6.3-8.2) g/dL Albumin 3.4 L (3.5-5.0) g/dL TSH 7.640 H (0.465-4.680) mIU/L Free T4 2.34 H (0.78-2.19) ng/dL Thrombosis Risk Factor Assmnt - Choose All That Apply Any of the Below Risk Factors Present?: Yes Each Factor Represents 1 point: Abnormal pulmonary function (COPD) Each Risk Factor Represents 2 Points: Patient confined to bed Each Risk Factor Represents 3 Points: Age 75 years or older, History of DVT/PE Thrombosis Risk Factor Assessment Total Risk Factor Score: 9 Thrombosis Risk Factor Assessment Level: High Risk
[2023-11-20] MEDS: clonazePAM 0.5 MG TAB PO SCH (20:10)
[2023-11-20] MEDS: APIXABAN 5 MG TAB PO SCH (20:10)
[2023-11-21 06:03] LABS: Basophils % (A) 0 %; Eosinophils # (A) 0.2 k/uL (0-0.7); Eosinophils % (A) 3 %; HCT 41.7 % (34.0-46.0); HGB 12.3 gm/dL (11.4-16.0); Hypochromasia Marked; Lymphocytes # (A) 1.6 k/uL (1.0-4.8); Lymphocytes % (A) 23 %; MCH 26.7 pg (25.0-35.0); MCHC 29.6 g/dL (31.0-37.0); MCV 90.1 fL (80.0-100.0); Mean Platelet Volume 7.6; Monocytes # (A) 0.5 k/uL (0-1.0); Monocytes % (A) 7 %; Neutrophils # (A) 4.6 k/uL (1.3-7.7); Neutrophils % (A) 66 %; Platelet Count 176 k/uL (150-450); RBC 4.63 m/uL (3.80-5.40); RDW 15.1 % (11.5-15.5); WBC 7.1 k/uL (3.8-10.6)
[2023-11-21 06:17] LABS: African American GFR (CKD) 65 (>60 ml/min/1.73 sqM); Anion Gap 0 mmol/L; Blood Urea Nitrogen 31 mg/dL (7-17); Calcium 8.7 mg/dL (8.4-10.2); Carbon Dioxide 34 mmol/L (22-30); Chloride 104 mmol/L (98-107); Glucose 91 mg/dL (74-99); Magnesium 1.6 mg/dL (1.6-2.3); Non-African American GFR(CKD) 56 (>60 ml/min/1.73 sqM); Phosphorus 2.9 mg/dL (2.5-4.5); Potassium 4.9 mmol/L (3.5-5.1); Sodium 138 mmol/L (137-145)
--- NOTE | 2023-11-21 08:28 | P.PN ---
Subjective Progress Note Date: 11/21/23 Principal diagnosis: Heart block, syncope. Pulmonary consult dated November 20, 2023. 78-year-old female who was brought in by EMS to the emergency department on November 18. The patient had either a syncopal episode, or brief episode of cardiopulmonary arrest. The patient apparently passed out after she bent over to feed her cat. Apparently there was bystander CPR for a period of time until EMS arrived. When EMS arrived, they were vital signs, with a heart rate of 70. She apparently was alert and speaking at that time. In transport to the ER, she apparently developed heart block and, she was treated with epinephrine, and transthoracic pacing. In the emergency room, she was able to give some details. The patient was seen in the emergency department, trauma room #1. The patient is currently on oxygen, 4 L. Saturations are 99%. The patient was not able to give any additional history. She was initially placed on dopamine as per cardiology but but that has been weaned off. Her vital signs currently include blood pressure 148/70 heart rate 61 respiratory rate 14. Her primary care physician is Dr. Robledo, but she also sees Dr. Garsia and Dr. Sánchez. Patient appea rs in no acute distress. Current labs include a white count 8.5, hemoglobin 13.5, hematocrit 46.1, and a normal platelet count. Coagulation studies are normal. Sodium 140, potassium 5, chlorides 103, CO2 30, BUN 32, and creatinine 1.74. Glucose 155. Troponins were 0.016, 0.017, and 0.032. TSH is elevated at 7.640. EKG here in the hospital shows a first-degree heart block. Chest x-ray may show a right upper lobe medial infiltrate. Progress note dated November 21, 2023. 78-year-old female seen in the emergency department yesterday, for syncope, and/or cardiopulmonary arrest. The patient is seen today in room 375. She is resting comfortably. She is on 4 L of oxygen. He is getting saline at 25 cc an hour. She was initially going to be admitted to the intensive care unit, for third-degree heart block, but, did not need ICU admission. Her primary care physician is Dr. Robledo. Current laboratory data includes a white count 7.1, hemoglobin 12.3, hematocrit 41.7, and a normal platelet count. Sodium 138, potassium 4.9, chlorides 104, CO2 34, BUN 31, creatinine 0.96. No recent chest x-ray to report. Objective - Vital Signs Vital signs: Vital Signs Temp 98.3 F 11/20/23 20:00 Pulse 64 11/21/23 04:00 Resp 16 11/21/23 04:00 BP 126/61 11/21/23 04:00 Pulse Ox 92 L 11/21/23 08:03 FiO2 Intake & Output 11/20/23 11/21/23 11/21/23 18:59 06:59 18:59 Intake Total 236 Output Total 100 Balance 236 -100 Weight 80.195 kg 84 kg Intake: Oral 236 Output: Urine 100 Other: # Voids 2 - Exam No acute distress, oriented 3. Currently on 4 L. Saturations are 95 %. HEENT examination is grossly unremarkable. Mucous membranes are moist. No oral lesions. Neck supple. Full range of motion. No adenopathy thyromegaly or neck vein distention. Cardiovascular examination reveals regular rhythm rate. S1-S2 normal. No S3 or S4. No discernible murmur noted. Heart rate 64 bpm. Lungs reveal clear breath sounds. Breath sounds are equal bilaterally. No adventitious lung sounds including wheezes rhonchi or crackles. Abdomen soft bowel sounds are heard. No masses or tenderness. Extremities are intact. No cyanosis clubbing or edema. Skin is without rash or lesion. Neurologic examination is brief but nonfocal. - Labs CBC & Chem 7: 11/21/23 05:28 11/21/23 05:28 Labs: Abnormal Lab Results - Last 24 Hours (Table) 11/19/23 11/21/23 11/21/23 Range/Units 21:17 05:28 05:28 MCHC 29.6 L (31.0-37.0) g/dL Carbon Dioxide 34 H (22-30) mmol/L BUN 31 H (7-17) mg/dL TSH 7.640 H (0.465-4.680) mIU/L Free T4 2.34 H (0.78-2.19) ng/dL Assessment and Plan Assessment: Syncope, versus brief cardiopulmonary arrest, with bystander CPR. Third-degree heart block, treated with epinephrine, and external pacing. History of CAD with previous stent. Possible underlying mild COPD. Gastroesophageal reflux disease. History of hypertension. History of osteoarthritis. Hypothyroidism, not optimally treated. History of anemia. Plan: Plan dated November 20, 2023. The patient is seen in the emergency department. The patient was on 4 L of oxygen. Saturations were 99%. Blood pressure was 148/70. Heart rate was 61. Respiratory rate was 14. She was afebrile. The patient was no longer on dopamine. She was getting saline at 75 cc an hour. Labs, x-rays, medications are reviewed. 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 The patient's TSH is high, so she may not be taking her thyroid replacement therapy. That should be addressed by the primary service. No additional recommendations at this time. Plan dated November 21, 2023. The patient was seen in room 375. She is resting comfortably. She is on 4 L. Saline is running at 25 cc an hour. Labs, x-rays, medications are all reviewed. We will continue to follow make recommendations along the way. She does likely have underlying mild COPD. No additional recommendations are made. Time with Patient: Less than 30
[2023-11-21] MEDS ORDERED: ASPIRIN 325 MG TAB PO SCH (09:00)
[2023-11-21] MEDS ORDERED: HEPARIN SODIUM 1,000 UN/ML (10ML VL) IV PRN (09:21)
[2023-11-21] MEDS: FOLIC ACID 1 MG TAB PO SCH (09:21)
[2023-11-21 09:41] LABS: Chol/HDL Ratio 1.77 Ratio; LDL Cholesterol,Calculated 32.6 mg/dL (0.0-131.0)
[2023-11-21] MEDS: HEPARIN SODIUM 1,000 UN/ML (10ML VL) IV ONE (10:18)
[2023-11-21] MEDS: HEPARIN SOD,PORK IN 0.45% NACL 25,000 UNIT in 0.45% NACL 1 250ML.BAG IV SCH (10:19)
[2023-11-21] MEDS: APIXABAN 5 MG TAB PO SCH (10:37)
--- NOTE | 2023-11-21 11:10 | P.PN ---
Subjective HISTORY OF PRESENT ILLNESS: This is a 78-year-old female with a past medical history significant for coronary artery disease with previous stenting of the LAD, cardiomyopathy with recovered EF, valvular heart disease, hypertension, hyperlipidemia, paroxysmal atrial fibrillation, and pulmonary embolism. Patient follows in the office with Dr. Alfonso. We have been asked to see the patient in consultation for symptomatic bradycardia. Patient examined at the bedside in the emergency room. Patient's granddaughter is present. Apparently yesterday the patient had made dinner and afterwards she was standing in the kitchen when she passed out to the floor. Her family member states that she did hit her head. She was unconscious and the feeling member called 911 and was instructed to do CPR over the phone. EMS arrived and transported the patient to the hospital. En route to the hospital, the patient developed third-degree heart block and was treated with epinephrine and temporary pacing. The patient was also started on IV dopamine in the emergency room which has since been discontinued. The patient is on high-dose beta-blockers outpatient with metoprolol 100 mg twice a day. Patient also states that she was recently at [facility] and was diagnosed with bilateral pulmonary embolisms and started on Eliquis. She states at that time she also had issues with atrial fibrillation and was started on amiodarone which she has been tapering down at home. She states that she is currently on once a day dosing but is unsure if it is 100 or 200 mg. She does report she has had episodes in the past of uncontrolled tachycardia. The patient also gives additional history that prior to being admitted to [facility] she had a syncopal episode about 2 weeks prior to being in the hospital. DIAGNOSTICS: - EKG reveals sinus mechanism with left bundle branch block. - Chest xray right upper lung medial increased airspace opacities - Laboratory data: WBC 8.5. Hemoglobin 13.5. Platelet count 201. Sodium 140. Potassium 5.0. BUN 32. Creatinine 1.74. Pratt negative x 3. - Current home cardiac medications include Lipitor 40 mg at night, amiodarone 200 mg daily, Lasix 40 mg daily, Eliquis 5 mg twice a day, metoprolol tartrate 100 mg twice a day, aspirin 81 mg daily. - Most recent echocardiogram obtained in October 2023 revealed normal EF, severe pulmonary hypertension, mild AR, moderate to severe TR, mild MR -Patient underwent Lexiscan stress test in May 2020 which was negative for ischemia - Cardiac catheterization history: January 2023 revealing patent stent in the mid LAD 11/21/2023 Patient examined this morning at the bedside. Patient currently denies chest pain or pressure. She denies shortness of breath. Telemetry reveals sinus mechanism. Patient has had no further episodes of bradycardia or complete heart block. Vital signs are stable. Echocardiogram reveals ejection fraction 50 to 55% with LVH PHYSICAL EXAM: VITAL SIGNS: Reviewed. GENERAL: Well-developed in no acute distress. HEENT: Head is normocephalic. Pupils are equal, round. Sclerae anicteric. Mucous membranes of the mouth are moist. Neck supple. No JVD or thyromegaly LUNGS: Respirations even and unlabored. Lungs essentially clear to auscultation bilaterally. HEART: Regular rate and rhythm. S1 and S2 heard. Systolic murmur noted. ABDOMEN: Soft. Nondistended. Nontender. EXTREMITIES: Normal range of motion. No clubbing or cyanosis. Peripheral pulses intact. No lower extremity edema NEUROLOGIC: Awake and alert. Oriented x 3. ASSESSMENT: Syncope secondary to complete heart block History of recent syncopal episode prior to being started on amiodarone Tachybradycardia syndrome Paroxysmal atrial fibrillation Recent diagnosis of bilateral pulmonary embolism at [facility], on Eliquis outpatient Acute kidney injury Coronary artery disease with previous stenting of the LAD Valvular heart disease Hypertension Hyperlipidemia PLAN: Continue anticoagulation with Eliquis. Do not hold or discontinue oral ant icoagulation. Continue to hold metoprolol Continue amiodarone 200 mg daily in attempt to maintain sinus mechanism Continue telemetry monitoring Plan for permanent pacemaker insertion on Wednesday with Dr. Felix No EKG patches to left chest Further recommendations pending patient course Nurse practitioner note has been reviewed by physician. Signing provider agrees with the documented findings, assessment, and plan of care documented by ENGINEERING [employer]DEL [employer]KER as a scribe. Objective - Vital Signs Vital signs: Vital Signs Temp 98.3 F 11/20/23 20:00 Pulse 64 11/21/23 04:00 Resp 16 11/21/23 04:00 BP 126/61 11/21/23 04:00 Pulse Ox 92 L 11/21/23 08:03 FiO2 Intake & Output 11/20/23 11/21/23 11/21/23 18:59 06:59 18:59 Intake Total 236 Output Total 100 Balance 236 -100 Weight 80.195 kg 84 kg Intake: Oral 236 Output: Urine 100 Other: # Voids 2 1 - Labs CBC & Chem 7: 11/21/23 05:28 11/21/23 05:28 Labs: Abnormal Lab Results - Last 24 Hours (Table) 11/19/23 11/21/23 11/21/23 Range/Units 21:17 05:28 05:28 MCHC 29.6 L (31.0-37.0) g/dL Carbon Dioxide 34 H (22-30) mmol/L BUN 31 H (7-17) mg/dL HDL Cholesterol 60.60 H (40.00-60.00) mg/dL Free T4 2.34 H (0.78-2.19) ng/dL
--- NOTE | 2023-11-21 14:12 | P.PN ---
Subjective Progress Note Date: 11/21/23 Interval History: Patient was seen and examined today. Patient feeling better today. Denied any chest pain, shortness of breath, palpitations. Complain of mild dizziness. Currently in sinus rhythm. No further episodes of bradycardia or complete heart block noted. Echocardiogram showed EF 50 to 55% with LVH. Cardiology following. Patient afebrile, heart rate 64, respiratory rate 16, currently satu rating 94% on 3.5 L oxygen nasal cannula. Lab work showed normal CBC. Acute kidney injury has resolved with creatinine down to 0.96. Lipid profile showed LDL 32.6. Procalcitonin negative. TSH elevated 7.640. Free T4 also elevated 2.34, patient on Synthroid 88 mcg. REVIEW OF SYSTEMS: CONSTITUTIONAL: No fever, no malaise,. CARDIOVASCULAR: No chest pain, no palpitations, no syncope. PULMONARY: No shortness of breath, no cough, GASTROINTESTINAL: No diarrhea, no nausea, no vomiting, no abdominal pain. NEUROLOGICAL: No headaches, no weakness, PHYSICAL EXAMINATION: GENERAL: The patient is alert and oriented x3, not in any acute distress. Well developed, well nourished. HEENT: Pupils are round and equally reacting to light. EOMI. No scleral icterus. No conjunctival pallor. Normocephalic, atraumatic. No pharyngeal erythema. No thyromegaly. CARDIOVASCULAR: S1 and S2 present. No murmurs, rubs, or gallops. PULMONARY: Chest is clear to auscultation, no wheezing or crackles. ABDOMEN: Soft, nontender, nondistended, normoactive bowel sounds. No palpable organomegaly. MUSCULOSKELETAL: No joint swelling or deformity. EXTREMITIES: No cyanosis, clubbing, or pedal edema. NEUROLOGICAL: Gross neurological examination did not reveal any focal deficits. SKIN: No rashes. Assessment and plan Syncope: Complete heart block: Paroxysmal atrial fibrillation: History of CAD/PCI: History of cardiomyopathy with recovered EF: Valvular heart disease: Hypertension: Hyperlipidemia: Presented after syncopal episode. Was found to have third degree heart block. Cardiology consulted Hold metoprolol, continue amiodarone 200 mg daily Telemetry monitoring Cardiology planning for permanent pacemaker on Wednesday. Acute kidney injury: Hold nephrotoxic Monitor renal function Gentle hydration. Recent bilateral PE: Continue Eliquis 5 mg twice daily--per cardiology okay to continue Eliquis no need to hold it for permanent pacemaker. Hypothyroidism: Synthroid. DVT prophylaxis. AC Dictation was produced using [employer] dictation software. please excuse any grammatical, word or spelling errors. Objective - Vital Signs Vital signs: Vital Signs Temp 98.3 F 11/20/23 20:00 Pulse 64 11/21/23 04:00 Resp 16 11/21/23 04:00 BP 126/61 11/21/23 04:00 Pulse Ox 92 L 11/21/23 08:03 FiO2 Intake & Output 11/20/23 11/21/23 11/21/23 18:59 06:59 18:59 Intake Total 236 Output Total 100 Balance 236 -100 Weight 80.195 kg 84 kg Intake: Oral 236 Output: Urine 100 Other: # Voids 2 1 - Labs CBC & Chem 7: 11/21/23 05:28 11/21/23 05:28 Labs: Abnormal Lab Results - Last 24 Hours (Table) 11/21/23 11/21/23 Range/Units 05:28 05:28 MCHC 29.6 L (31.0-37.0) g/dL Carbon Dioxide 34 H (22-30) mmol/L BUN 31 H (7-17) mg/dL HDL Cholesterol 60.60 H (40.00-60.00) mg/dL
[2023-11-22 08:07] LABS: Basophils # (A) 0.1 k/uL (0-0.2); Basophils % (A) 1 %; Eosinophils # (A) 0.2 k/uL (0-0.7); Eosinophils % (A) 3 %; HCT 44.2 % (34.0-46.0); Hypochromasia Marked; Lymphocytes # (A) 1.2 k/uL (1.0-4.8); Lymphocytes % (A) 17 %; MCH 26.6 pg (25.0-35.0); MCHC 29.4 g/dL (31.0-37.0); MCV 90.4 fL (80.0-100.0); Mean Platelet Volume 7.7; Monocytes # (A) 0.4 k/uL (0-1.0); Monocytes % (A) 6 %; Neutrophils # (A) 5.1 k/uL (1.3-7.7); Neutrophils % (A) 72 %; Platelet Count 187 k/uL (150-450); RBC 4.89 m/uL (3.80-5.40)
[2023-11-22 08:15] LABS: INR 0.9 (<1.2); Prothrombin Time 10.3 sec (10.0-12.5)
--- NOTE | 2023-11-22 08:39 | P.PN ---
Subjective Progress Note Date: 11/22/23 The patient is a pleasant 78-year-old female patient with a past medical history significant for CAD with prior PCI as well as multiple comorbid conditions who was admitted to the hospital with syncope and she was found to be in third- degree AV block currently in the process of having permanent pacemaker November 22, 2023 The patient was seen and evaluated this morning. She is asymptomatic and she is hemodynamically stable. She is going to undergo permanent pacemaker implantation. Examination is remarkable for stable vital signs with regular rate and rhythm and clear breathing sounds bilaterally and no edema was noted Assessment Third-degree AV block Syncopal episode secondary to AV block CAD Multiple comorbid conditions Plan Continue the current medical regimen Proceed with permanent pacemaker Objective - Vital Signs Vital signs: Vital Signs Temp 98.0 F 11/22/23 04:00 Pulse 69 11/22/23 04:00 Resp 18 11/22/23 04:00 BP 134/73 11/22/23 04:00 Pulse Ox 97 11/22/23 04:00 FiO2 Intake & Output 11/21/23 11/22/23 11/22/23 18:59 06:59 18:59 Intake Total 118 Balance 118 Weight 80.4 kg Intake: Oral 118 Other: Voiding Method Toilet Toilet Diaper Diaper # Voids 4 2 - Labs CBC & Chem 7: 11/22/23 07:47 11/21/23 05:28 Labs: Abnormal Lab Results - Last 24 Hours (Table) 11/21/23 11/22/23 Range/Units 05:28 07:47 MCHC 29.4 L (31.0-37.0) g/dL HDL Cholesterol 60.60 H (40.00-60.00) mg/dL
--- NOTE | 2023-11-22 08:56 | XR ---
EXAMINATION TYPE: XR ribs RT DATE OF EXAM: 11/22/2023 CLINICAL HISTORY: Pain, Fall Four views of the ribs fail demonstrate evidence for displaced rib fracture or secondary sign of rib fracture. Visualized lungs are clear. No evidence for pneumothorax. IMPRESSION: 1. No displaced rib fractures seen. ICD 10 NO FRACTURE, INITIAL EVALUATION
[2023-11-22 09:27] LABS: African American GFR (CKD) 86 (>60 ml/min/1.73 sqM); Anion Gap 1 mmol/L; Blood Urea Nitrogen 22 mg/dL (7-17); Calcium 9.1 mg/dL (8.4-10.2); Carbon Dioxide 36 mmol/L (22-30); Chloride 102 mmol/L (98-107); Glucose 104 mg/dL (74-99); Magnesium 1.6 mg/dL (1.6-2.3); Non-African American GFR(CKD) 75 (>60 ml/min/1.73 sqM); Potassium 4.9 mmol/L (3.5-5.1); Sodium 139 mmol/L (137-145)
[2023-11-22] MEDS: SODIUM CHLORIDE 0.9% 1,000 ML IV SCH ×2 (11:24)
--- NOTE | 2023-11-22 11:59 | P.PN ---
Subjective Progress Note Date: 11/22/23 Pulmonary consult dated November 20, 2023. 78-year-old female who was brought in by EMS to the emergency department on November 18. The patient had either a syncopal episode, or brief episode of cardiopulmonary arrest. The patient apparently passed out after she bent over to feed her cat. Apparently there was bystander CPR for a period of time until EMS arrived. When EMS arrived, they were vital signs, with a heart rate of 70. She apparently was alert and speaking at that time. In transport to the ER, she apparently developed heart block and, she was treated with epinephrine, and transthoracic pacing. In the emergency room, she was able to give some details. The patient was seen in the emergency department, trauma room #1. The patient is currently on oxygen, 4 L. Saturations are 99%. The patient was not able to give any additional history. She was initially placed on dopamine as per cardi ology but but that has been weaned off. Her vital signs currently include blood pressure 148/70 heart rate 61 respiratory rate 14. Her primary care physician is Dr. Robledo, but she also sees Dr. Garsia and Dr. Sánchez. Patient appears in no acute distress. Current labs include a white count 8.5, hemoglobin 13.5, hematocrit 46.1, and a normal platelet count. Coagulation studies are normal. Sodium 140, potassium 5, chlorides 103, CO2 30, BUN 32, and creatinine 1.74. Glucose 155. Troponins were 0.016, 0.017, and 0.032. TSH is elevated at 7.640. EKG here in the hospital shows a first-degree heart block. Chest x-ray may show a right upper lobe medial infiltrate. Progress note dated November 21, 2023. 78-year-old female seen in the emergency department yesterday, for syncope, and/or cardiopulmonary arrest. The patient is seen today in room 375. She is resting comfortably. She is on 4 L of oxygen. He is getting saline at 25 cc an hour. She was initially going to be admitted to the intensive care unit, for third-degree heart block, but, did not need ICU admission. Her primary care physician is Dr. Robledo. Current laboratory data includes a white count 7.1, hemoglobin 12.3, hematocrit 41.7, and a normal platelet count. Sodium 138, potassium 4.9, chlorides 104, CO2 34, BUN 31, creatinine 0.96. No recent chest x-ray to report. The patient is seen today November 22, 2023 in follow-up on the selective care unit. She is currently resting comfortably in bed. Awake and alert in no acute distress. Denies any worsening shortness of breath, cough or congestion. Maintaining O2 saturations in the 90s on 3 L/min per nasal cannula. Afebrile. White count 7.0. Hemoglobin 13.0. Platelets 187. Sodium 139. Potassium 4.9. Bicarb 36. BUN 22. Creatinine 0.76. Glucose 104. Procalcitonin was 0.05. She is continued on Symbicort, DuoNeb inhalations. Plan is for permanent pacem radha implantation today. Objective - Vital Signs Vital signs: Vital Signs Temp 98.1 F 11/22/23 08:00 Pulse 68 11/22/23 11:29 Resp 16 11/22/23 11:29 BP 148/79 11/22/23 11:29 Pulse Ox 95 11/22/23 11:29 FiO2 Intake & Output 11/21/23 11/22/23 11/22/23 18:59 06:59 18:59 Intake Total 118 Balance 118 Weight 80.4 kg Intake: Oral 118 Other: Voiding Method Toilet Toilet Toilet Diaper Diaper Diaper # Voids 4 2 - Exam GENERAL EXAM: Alert, pleasant 78-year-old female, on 3 L nasal cannula, comfortable in no apparent distress. HEAD: Normocephalic. EYES: Normal reaction of pupils, equal size. NOSE: Clear with pink turbinates. THROAT: No erythema or exudates. NECK: No masses, no JVD. CHEST: No chest wall deformity. LUNGS: Equal air entry with no crackles, wheeze, rhonchi or dullness. CVS: S1 and S2 normal with no audible murmur, regular rhythm. ABDOMEN: No hepatosplenomegaly, normal bowel sounds, no guarding or rigidity. SPINE: No scoliosis or deformity SKIN: No rashes CENTRAL NERVOUS SYSTEM: No focal deficits, tone is normal in all 4 extremities. EXTREMITIES: There is no peripheral edema. No clubbing, no cyanosis. P eripheral pulses are intact. - Labs CBC & Chem 7: 11/22/23 07:47 11/22/23 07:47 Labs: Abnormal Lab Results - Last 24 Hours (Table) 11/22/23 11/22/23 Range/Units 07:47 07:47 MCHC 29.4 L (31.0-37.0) g/dL Carbon Dioxide 36 H (22-30) mmol/L BUN 22 H (7-17) mg/dL Glucose 104 H (74-99) mg/dL Assessment and Plan Assessment: Syncope, versus brief cardiopulmonary arrest, with bystander CPR. Third-degree heart block, treated with epinephrine, and external pacing. Plan is for permanent pacemaker implantation today History of CAD with previous stent. Possible underlying mild COPD. Gastroesophageal reflux disease. History of hypertension. History of osteoarthritis. Hypothyroidism, not optimally treated. History of anemia. Plan: The patient was seen and evaluated Labs and medications reviewed Currently stable on 3 L nasal cannula Continue Symbicort, DuoNeb inhalations Plan is for permanent pacemaker implantation today We will continue to follow I have personally seen and examined the patient, performed the documentation and the assessment and plan as written. Number of minutes spent on the visit: 10.
[2023-11-22] MEDS: MAGNESIUM SULFATE-D5W PMX 1 GM in DEXTROSE/WATER 1 100ML.BAG IVPB SCH (12:04)
[2023-11-22] MEDS: IPRATROPIUM-ALBUTEROL 3 ML NEB INHALATION SCH (12:18)
[2023-11-22] MEDS: IV FLUID CONTINUATION 1,000 ML IV ONE (15:00)
[2023-11-22] MEDS ORDERED: LIDOCAINE 1% INJ 10MG/ML (20 ML MDV) ONE ×3 (15:45→17:06)
[2023-11-22] MEDS ORDERED: MIDAZOLAM 2 MG/2 ML VIAL ONE (15:55)
[2023-11-22] MEDS: IOPAMIDOL-370 100ML BTL IVP ONE (16:33)
[2023-11-22] MEDS: LIDOCAINE 1% INJ 10MG/ML (20 ML MDV) SQ ONE ×5 (16:48→17:07)
[2023-11-22] MEDS: ROPIVACAINE 5MG/ML 20ML VIAL MISCELLANE ONE ×2 (16:49)
--- NOTE | 2023-11-22 17:30 | P.PN ---
Subjective Progress Note Date: 11/22/23 HISTORY OF PRESENT ILLNESS: This is a 78-year-old female with a past medical history significant for coronary artery disease with stents, cardiomyopathy with recovered EF, hypertension hyperlipidemia paroxysmal atrial fibrillation and pulmonary embolism on Eliquis, and valvular heart disease. Patient presents to the hospital on 11/19/2023 following a fall at home patient states she was in the kitchen cooking dinner when she fell, family member heard the fall immediately call 911 and from their instruction began CPR, although patient never had loss of vital signs. When EMS arrived they discovered patient was in third-degree heart block, she was given epinephrine and started on temporary pacing. In the emergency department patient was started on IV dopamine but this has since been discontinued. Patient recently had another episode of syncope 2 weeks ago, she was treated at [facility] where she was diagnosed with bilateral pulmonary embolisms and atrial fibrillation with rapid ventricular rate, during this admission she was started on Eliquis as well as an amiodarone taper and metoprolol. Additional ER workup included chest x-ray which demonstrated right upper lung medial increased airspace opacities, blood work showed white blood cells 8.5, hemoglobin 13.5, platelet 201, sodium 140, potassium 5.0, BUN 32, creatinine 1.74, EGFR 27, TSH 7.64, FT4 2.34, troponins negative x 3. Cardiology was consulted to evaluate for potential pacemaker placement.Over the weekend of repeat echocardiogram showed an EF of 50 to 55% with LVH, unchanged from past echo performed in October 2023. Cardiology evaluated the patient and are recommending a permanent pacemaker be placed, hold metoprolol, continue amiodarone, continue Eliquis. Patient was admitted to cardiac floor for co ntinuous telemetry monitoring, no further episodes of bradycardia or syncope over the weekend. Patient is scheduled for permanent pacemaker placement today. 11/22/2023: Patient seen today, appears overall well. No further bradycardia, syncope, dizziness overnight. No issues reported from nursing staff overnight. Patient is scheduled to have permanent pacemaker placed by Dr. Felix today. She reports some right sided chest pain and rib pain from the fall. REVIEW OF SYSTEMS: CONSTITUTIONAL: Well-developed no acute respiratory distress. EYES: No icterus sclerae, no conjunctivitis. EARS, NOSE, MOUTH, THROAT, and FACE: No sore throat, lymphadenopathy, carotid bruits or deformity. RESPIRATORY: No SOB cough or wheezes. CARDIOVASCULAR: Positive palpitations. No CP, PND, Orthopnea, or angina. GASTROINTESTINAL: No Abd pain, Nausea or vomiting, no Diarrhea or constipation, No GI Bleed, no distention or masses. GENITOURINARY: Negative for Hematuria or UTI, no kidney stones. INTEGUMENT/BREAST: Negative for any muscular injury with mild osteoarthritis.. HEMATOLOGIC/LYMPHATIC: Negative for bleed or purpura. MUSCULOSKELTAL: Positive lower right rib pain. Negative for Myalgia or arthralgia. NEURLOGICAL: Positive syncope and dizziness, negative confusion, blurred vision, weakness. BEHAVIORAL/PSYCH: Negative. ENDOCRINE: Negative. PHYSICAL EXAMINATION: General Appearance: Alert, cooperative, no distress, appears stated age. Neck HEENT: Supple, no lymphadenopathy, no thyroid enlargement, no carotid bruits. Lungs: Clear to auscultation without crackles or wheezes no rhonchi, no deformity. Chest Wall: Chest wall normal expansion with deep inspiration no tenderness and no deformity was found on exam, no costochondral pain or discomfort. Heart: Regular rate and rhythm, S1, S2 normal, no murmur, rub or gallop. Back: Symmetric, no curvature, ROM normal, no CVA tenderness. Abdomen: Soft, non-tender, bowel sounds active all four quadrants, no masses, no organomegaly. Extremities: Extremities normal, atraumatic, no cyanosis or edema. Pulses: 2+ and symmetric. Skin: Skin color, texture, tugor normal, no rashes or lesions. Neurologic: Alert oriented x3 cranial nerves II through XII intact, no motor deficit, no abnormal balance or gait. ASSESSMENT AND PLAN: _Syncope secondary to complete heart block, was placed on temporary pacing in EMS and ER, now in sinus rhythm without further episodes of bradycardia. Patient landed on right side during fall, CXR and rib XR normal. Continue amiodarone. Will go for permanent pacemaker today. _Complete heart block: currently in sinus rhythm with left bundle branch block. Holding metoprolol, continue amiodarone and eliquis. Cardiology following. Will go for permanent pacemaker today. _Paroxysmal Atrial Fibrillation, was recently treated for atrial fibrillation with rapid ventricular rate 2-3 weeks ago at [facility], was started on amiodar one, as well as metoprolol and eliquis. Metoprolol currently on hold for complete heart block. _History of recent bilateral pulmonary embolism, diagnosed 2-3 weeks ago at [facility] following an episode of syncope, was also found to be in A-fib RVR at this time. Was started on eliquis 5mg twice a day, has been compliant with medication. _Cardiomyopathy with recovered EF, Echo performed in October 2023 demonstrated normal EF, severe pulmonary hypertension, mild AR, moderate to severe TR, and mild MR. Repeat echocardiogram on 11/19 largely unchanged, EF 50-55%, septal bounce consistent with left bundle branch block. _Acute Kidney Injury: Improved from admission, today BUN 22, creatinine 0.76, eGFR 75. Continue to hold nephrotoxic medications. Check CMP daily. _Right rib pain secondary to fall at home, no fracture on right rib x-ray. Continue supportive care. _Coronary Artery Disease with stenting: Recent cardiac catheterization in January 2023 revealed patent stent to the LAD. Continue atorvastatin and aspirin. _Hypertension: Blood pressure stable, metoprolol on hold. _Hyperlipidemia: Continue atorvastatin and aspirin. _Hypothyroidism: Continue levothyroxine. DVT Prophylaxis: Continue eliquis. Disposition: FULL CODE Discussion: Will go for pacemaker today. Await recommendations from cardiology following insertion. Continue to monitor kidney function. If all goes well anticipate discharge in next 24-48 hours. The patient was seen and evaluated by Dr. Mcgowan. Plan, assessment and medications were all discussed, reviewed, and directed by Dr. Mcgowan with Lex DENNIS acting as a scribe. Objective - Vital Signs Vital signs: Vital Signs Temp 98.0 F 11/22/23 04:00 Pulse 69 11/22/23 04:00 Resp 18 11/22/23 04:00 BP 134/73 11/22/23 04:00 Pulse Ox 97 11/22/23 04:00 FiO2 Intake & Output 11/21/23 11/22/23 11/22/23 18:59 06:59 18:59 Intake Total 118 Balance 118 Weight 80.4 kg Intake: Oral 118 Other: Voiding Method Toilet Toilet Diaper Diaper # Voids 4 2 - Labs CBC & Chem 7: 11/22/23 07:47 11/22/23 07:47 Labs: Abnormal Lab Results - Last 24 Hours (Table) 11/21/23 11/22/23 Range/Units 05:28 07:47 MCHC 29.4 L (31.0-37.0) g/dL HDL Cholesterol 60.60 H (40.00-60.00) mg/dL
[2023-11-22] MEDS: ceFAZolin 1,000 MG in SODIUM CHLORIDE 0.9% IRRIG BTL 250 ML IRRIGATION ONE (18:08)
[2023-11-22] MEDS ORDERED: ACETAMINOPHEN TAB 325 MG TAB PO PRN (18:17)
--- NOTE | 2023-11-22 18:22 | P.PN ---
Progress Note - Text Patient presented with syncope and paroxysmal AV block Underlying left bundle branch block Known CAD status post stenting in the past Preserved LV systolic function She underwent successful implantation of a dual-chamber pacemaker with conduction system pacing/left bundle pacing Programmed AAI-DDD 60 bpm She may resume beta-blockers metoprolol 100 mg twice daily and continue with all other cardiac medications 1 dose of IV antibiotics today, chest x-ray and device interrogation tomorrow She will be discharged home tomorrow by noon time
--- NOTE | 2023-11-22 18:25 | P.EPPROC ---
- EP Procedure Note Electrophysiology Procedure Note: Diagnosis Symptomatic bradycardia, unprovoked, no triggering factors Paroxysmal AV block with syncope, preserved systolic function, underlying left bundle branch block pattern on twelve-lead EKG Procedure Dual-chamber pacemaker implantation with conduction system pacing (left bundle pacing) Left upper extremity venogram Details Patient was brought to the EP lab in a fasting state. Written informed consent was obtained prior to the procedure. Conscious sedation provided by [employer]IC. IV antibiotics administered. Local anesthesia administered. A 4 cm incision made in the pectoral area. Subfascial pocket made. Venous accesses obtained Venous sheaths placed. Leads placed in the right heart. 2 sets of pacing cables were used; one for backup temporary pacing and the other for assessment of current of injury and signal analysis. A 52 cm atrial pacing lead was first positioned in the RV apex for temporary pacing during mapping and conduction system pacing Thresholds were interrogated and backup high output pacing was provided This atrial lead was then removed from the right ventricle and later positioned in the right atrial appendage and the permanent lead A deflected sheath was prepped. A coronary sinus decapolar catheter was placed within this sheath. The catheter along with the sheath was then passed into the right heart, the catheter was prolapsed across the tricuspid valve, into the right ventricle and then further into the right ventricular outflow tract across the pulmonic valve into the pulmonary artery. This sheath was slid over this decapolar catheter into the RVOT. Thereafter the catheter last sheath assembly was withdrawn from the RVOT along the septum to the mid septal area. The sheath was appropriately to to map the right ventricular aspect of the septum. The decapolar catheter was withdrawn, the sheath flushed again and the screw-in pacing lead placed within the sheath. Further detailed unipolar pace-mapping of the septum was performed and once the appropriate based morphology was obtained on lead V1, the lead was screwed into the septum. The lead was screwed in 4-5 returns at a time while monitoring the current of injury, the pacing impedance changes and the paced QRS morphology. The stimulus to peak of V6 QRS was measu red at each step. Once a QR or rSR pattern of paced QRS in lead V1 was obtained, a left bundle signal was sought. Impedance was measured and thresholds were measured. An impedance drop of 100-200 ohms but above 550 ohms was targeted along with an unchanged vector of the current of injury signal. The final positioning was based on the QRS morphology in lead V1 and a short stimulus to peak of the V6 QRS of less than 90 ms. The sheath was withdrawn, stability of the pacing lead deep in the septum was confirmed on MONTERROSO and AILIN views and the sheath was slipped and an adequate heel was provided for the lead. Unipolar and bipolar electrogram morphology obtained Atrial lead positioned in the right atrial appendage. Sensing, thresholds and impedances measured following positioning and securing the lead in the right atrial appendage Left bundle lead parameters: Pacing threshold 0. 8 V at 0.4 ms, pacing impedance 760 ohms and R waves 6.0 mV QR pattern on lead V1, paced QRS width of 148 ms Stimulus-V6 equals 80 ms [employer] model #3830-lead Atrial lead parameters 52 cm active fix lead P waves 3 mV, pace impedance 475 ohms, pacing threshold 0.8 V at 0.4 ms. Stable position in the right atrial appendage Device public policy mediator: [employer] XT DR MRI Dual-chamber pacemaker device connected to the leads and placed in the subfascial pocket. Antibiotic pouch placed Patient tolerated the procedure well without acute complications Pacemaker programming AAI-DDD 60 with an upper tracking rate of 130 bpm
--- NOTE | 2023-11-22 18:30 | P.PRLE ---
RE: Yuliya Harden Dear Dr. Meena Dwyer underwent successful implantation of a dual-chamber pacemaker with conduction system pacing, with pacing of the left bundle As you know she presented to the hospital with syncope and paroxysmal AV block. She has an underlying left bundle branch block pattern on twelve-lead EKG She may resume all her medications including beta-blockers once again and will follow-up with you and Dr. Kyle as before Thank you for entrusting me with the care of the patient Warm regards Sincerely Freeman Felix
[2023-11-22] MEDS: METOPROLOL TARTRATE 50 MG TAB PO SCH (20:57)
[2023-11-22] MEDS: SYMBICORT 160-4.5 MCG INHALER INHALATION SCH (21:07)
[2023-11-23 00:34] VITALS: RESP 18
--- NOTE | 2023-11-23 08:08 | XR ---
EXAMINATION TYPE: XR chest 2V DATE OF EXAM: 11/23/2023 COMPARISON: 11/19/2023 HISTORY: Shortness of breath TECHNIQUE: Frontal and lateral views of the chest are obtained. FINDINGS: Scattered senescent parenchymal changes noted. Hyperinflation compatible with COPD. No evidence for infiltrate. No evidence for atelectasis. Heart size is stable. Mediastinal structures are stable and grossly unremarkable. No evidence for hilar prominence. Degenerative changes dorsal spine. IMPRESSION: 1. No evidence for acute pulmonary disease.
--- NOTE | 2023-11-23 10:02 | P.PN ---
Subjective Progress Note Date: 11/23/23 HISTORY OF PRESENT ILLNESS: This is a 78-year-old female with a past medical history significant for coronary artery disease with stents, cardiomyopathy with recovered EF, hypertens ion hyperlipidemia paroxysmal atrial fibrillation and pulmonary embolism on Eliquis, and valvular heart disease. Patient presents to the hospital on 11/19/2023 following a fall at home patient states she was in the kitchen cooking dinner when she fell, family member heard the fall immediately call 911 and from their instruction began CPR, although patient never had loss of vital signs. When EMS arrived they discovered patient was in third-degree heart block, she was given epinephrine and started on temporary pacing. In the emergency department patient was started on IV dopamine but this has since been discontinued. Patient recently had another episode of syncope 2 weeks ago, she was treated at [facility] where she was diagnosed with bilateral pulmonary embolisms and atrial fibrillation with rapid ventricular rate, during this admission she was started on Eliquis as well as an amiodarone taper and metoprolol. Additional ER workup included chest x-ray which demonstrated right upper lung medial increased airspace opacities, blood work showed white blood cells 8.5, hemoglobin 13.5, platelet 201, sodium 140, potassium 5.0, BUN 32, creatinine 1.74, EGFR 27, TSH 7.64, FT4 2.34, troponins negative x 3. Cardiology was consulted to evaluate for potential pacemaker placement.Over the weekend of repeat echocardiogram showed an EF of 50 to 55% with LVH, unchanged from past echo performed in October 2023. Cardiology evaluated the patient and are recommending a permanent pacemaker be placed, hold metoprolol, continue amiodarone, continue Eliquis. Patient was admitted to cardiac floor for continuous telemetry monitoring, no further episodes of bradycardia or syncope over the weekend. Patient is scheduled for permanent pacemaker placement today. 11/22/2023: Patient seen today, appears overall well. No further bradycardia, syncope, dizziness overnight. No issues reported from nursing staff overnight. Patient is scheduled to have permanent pacemaker placed by Dr. Felix today. She reports some right sided chest pain and rib pain from the fall. 11/23/2023: Patient went for dual chamber pacemaker placement yesterday. No issues reported overnight. Discussed with nursing staff, per Dr. Felix a [employer] financial services representative will come interrogate the device at noon, and patient will be able to be discharged after 3 PM today. Patient is able to resume all medications. Chest x-ray completed this morning unremarkable. Vital signs stable overnight. REVIEW OF SYSTEMS: CONSTITUTIONAL: Well-developed no acute respiratory distress. EYES: No icterus sclerae, no conjunctivitis. EARS, NOSE, MOUTH, THROAT, and FACE: No sore throat, lymphadenopathy, carotid bruits or deformity. RESPIRATORY: No SOB cough or wheezes. CARDIOVASCULAR: Positive palpitations. No CP, PND, Orthopnea, or angina. GASTROINTESTINAL: No Abd pain, Nausea or vomiting, no Diarrhea or constipation, No GI Bleed, no distention or masses. GENITOURINARY: Negative for Hematuria or UTI, no kidney stones. INTEGUMENT/BREAST: Negative for any muscular injury with mild osteoarthritis.. HEMATOLOGIC/LYMPHATIC: Negative for bleed or purpura. MUSCULOSKELTAL: Positive lower right rib pain. Negative for Myalgia or arthralgia. NEURLOGICAL: Positive syncope and dizziness, negative confusion, blurred vision, weakness. BEHAVIORAL/PSYCH: Negative. ENDOCRINE: Negative. PHYSICAL EXAMINATION: General Appearance: Alert, cooperative, no distress, appears stated age. Neck HEENT: Supple, no lymphadenopathy, no thyroid enlargement, no carotid bruits. Lungs: Clear to auscultation without crackles or wheezes no rhonchi, no deformity. Chest Wall: Chest wall normal expansion with deep inspiration, no deformity was found on exam. Reports right sided rib pain. Surgical dressing present on left anterior chest wall from PM placement, dressing is CDI, no swelling or hematoma. Heart: Regular rate and rhythm, S1, S2 normal, no murmur, rub or gallop. Back: Symmetric, no curvature, ROM normal, no CVA tenderness. Abdomen: Soft, non-tender, bowel sounds active all four quadrants, no masses, no organomegaly. Extremities: Extremities normal, atraumatic, no cyanosis or edema. Wearing left- arm sling Pulses: 2+ and symmetric. Skin: Skin color, texture, tugor normal, no rashes or lesions. Neurologic: Alert oriented x3 cranial nerves II through XII intact, no motor deficit, no abnormal balance or gait. ASSESSMENT AND PLAN: _Syncope secondary to complete heart block, was placed on temporary pacing in EMS and ER, now in sinus rhythm underlying LBBB after dual chamber pacemaker placement on 11/21. Okay to resume metoprolol and amiodarone per cardiology. _Complete heart block: Pacemaker placed yesterday, underlying left bundle branch block. Cardiology following. On metoprolol, amiodarone, eliquis. _Pacemaker secondary to paroxysmal AV block: [employer] dual chamber pacemaker placed on 11/21, to be interrogated and settings adjusted by financial services representative at noon, then patient able to be discharged. Continue supportive care and activity restrictions. _Paroxysmal Atrial Fibrillation, was recently treated for atrial fibrillation with rapid ventricular rate 2-3 weeks ago at [facility], was started on amiodarone, as well as metoprolol and eliquis. Metoprolol was on hold for complete heart block, can now resume all medications. _History of recent bilateral pulmonary embolism, diagnosed 2-3 weeks ago at [facility] following an episode of syncope, was also found to be in A-fib RVR at this time. Was started on eliquis 5mg twice a day, has been compliant with medication. _Cardiomyopathy with recovered EF, Echo performed in October 2023 demonstrated normal EF, severe pulmonary hypertension, mild AR, moderate to severe TR, and mild MR. Repeat echocardiogram on 11/19 largely unchanged, EF 50-55%, septal bounce consistent with left bundle branch block. _Acute Kidney Injury: Improved from admission, last BUN 22, creatinine 0.76, eGFR 75. Check CMP daily. _Right rib pain secondary to compressions done at home, no fracture on right rib x-ray. Continue supportive care. _Coronary Artery Disease with stenting: Recent cardiac catheterization in January 2023 revealed patent stent to the LAD. Continue atorvastatin and aspirin. _Hypertension: Blood pressure stable, continue metoprolol. _Hyperlipidemia: Continue atorvastatin and aspirin. _Hypothyroidism: Continue levothyroxine. DVT Prophylaxis: Continue eliquis. Disposition: FULL CODE Discussion: Permanent pacemaker inserted yesterday by Dr. Felix without issue. Resume all medications. [employer] financial services representative will come interrogate device and adjust settings, patient will be able to be discharged after 3pm. The patient was seen and evaluated by Dr. Mcgowan. Plan, assessment and medications were all discussed, reviewed, and directed by Dr. Mcgowan with Lex DENNIS acting as a scribe. Objective - Vital Signs Vital signs: Vital Signs Temp 97.7 F 11/23/23 00:00 Pulse 68 11/23/23 04:00 Resp 18 11/23/23 04:00 BP 103/63 11/23/23 04:00 Pulse Ox 96 11/23/23 04:00 FiO2 Intake & Output 11/22/23 11/23/23 11/23/23 18:59 06:59 18:59 Intake Total 400 1180 Balance 400 1180 Weight 81.2 kg Intake: IV 400 Intake, IV Titration 100 Amount ceFAZolin 2 gm In Sodium 100 Chloride 0.9% 50 ml @ 100 mls/hr IVPB ONCE PRN Rx# :[id number] Oral 1080 Other: Voiding Method Toilet Toilet # Voids 2 - Labs CBC & Chem 7: 11/22/23 07:47 11/22/23 07:47 Labs: Abnormal Lab Results - Last 24 Hours (Table) 11/22/23 Range/Units 07:47 Carbon Dioxide 36 H (22-30) mmol/L BUN 22 H (7-17) mg/dL Glucose 104 H (74-99) mg/dL
--- NOTE | 2023-11-23 11:38 | P.PN ---
Subjective Progress Note Date: 11/23/23 Principal diagnosis: Heart block, syncope. Pulmonary consult dated November 20, 2023. 78-year-old female who was brought in by EMS to the emergency department on November 18. The patient had either a syncopal episode, or brief episode of cardiopulmonary arrest. The patient apparently passed out after she bent over to feed her cat. Apparently there was bystander CPR for a period of time until EMS arrived. When EMS arrived, they were vital signs, with a heart rate of 70. She apparently was alert and speaking at that time. In transport to the ER, she apparently developed heart block and, she was treated with epinephrine, and transthoracic pacing. In the emergency room, she was able to give some details. The patient was seen in the emergency department, trauma room #1. The patient is currently on oxygen, 4 L. Saturations are 99%. The patient was not able to give any additional history. She was initially placed on dopamine as per cardiology but but that has been weaned off. Her vital signs currently include blood pressure 148/70 heart rate 61 respiratory rate 14. Her primary care physician is Dr. Robledo, but she also sees Dr. Garsia and Dr. Sánchez. Patient appea rs in no acute distress. Current labs include a white count 8.5, hemoglobin 13.5, hematocrit 46.1, and a normal platelet count. Coagulation studies are normal. Sodium 140, potassium 5, chlorides 103, CO2 30, BUN 32, and creatinine 1.74. Glucose 155. Troponins were 0.016, 0.017, and 0.032. TSH is elevated at 7.640. EKG here in the hospital shows a first-degree heart block. Chest x-ray may show a right upper lobe medial infiltrate. Progress note dated November 21, 2023. 78-year-old female seen in the emergency department yesterday, for syncope, and/or cardiopulmonary arrest. The patient is seen today in room 375. She is resting comfortably. She is on 4 L of oxygen. He is getting saline at 25 cc an hour. She was initially going to be admitted to the intensive care unit, for third-degree heart block, but, did not need ICU admission. Her primary care physician is Dr. Robledo. Current laboratory data includes a white count 7.1, hemoglobin 12.3, hematocrit 41.7, and a normal platelet count. Sodium 138, potassium 4.9, chlorides 104, CO2 34, BUN 31, creatinine 0.96. No recent chest x-ray to report. Progress note dated November 22, 2023. 78-year-old female seen in room 375. The patient is currently on 3 L nasal cannula. Saturations are 96%. The rest of her vital signs are stable. No new laboratory data today. The patient had a dual-chamber pacemaker implantation yesterday. Objective - Vital Signs Vital signs: Vital Signs Temp 97.8 F 11/23/23 09:29 Pulse 64 11/23/23 09:37 Resp 18 11/23/23 09:29 BP 130/86 11/23/23 09:29 Pulse Ox 96 11/23/23 09:29 FiO2 Intake & Output 11/22/23 11/23/23 11/23/23 18:59 06:59 18:59 Intake Total 400 1180 120 Balance 400 1180 120 Weight 81.2 kg Intake: IV 400 Intake, IV Titration 100 Amount ceFAZolin 2 gm In Sodium 100 Chloride 0.9% 50 ml @ 100 mls/hr IVPB ONCE PRN Rx# :[id number] Oral 1080 120 Other: Voiding Method Toilet Toilet Toilet # Voids 2 - Exam No acute distress, oriented 3. Currently on 3 L. Saturations are 96 %. HEENT examination is grossly unremarkable. Mucous membranes are moist. No oral lesions. Neck supple. Full range of motion. No adenopathy thyromegaly or neck vein dist ention. Cardiovascular examination reveals regular rhythm rate. S1-S2 normal. No S3 or S4. No discernible murmur noted. Heart rate 64 bpm. Lungs reveal clear breath sounds. Breath sounds are equal bilaterally. No adventitious lung sounds including wheezes rhonchi or crackles. Abdomen soft bowel sounds are heard. No masses or tenderness. Extremities are intact. No cyanosis clubbing or edema. Skin is without rash or lesion. Neurologic examination is brief but nonfocal. - Labs CBC & Chem 7: 11/22/23 07:47 11/22/23 07:47 Assessment and Plan Assessment: Syncope, versus brief cardiopulmonary arrest, with bystander CPR. Third-degree heart block, treated with epinephrine, and external pacing. History of CAD with previous stent. Possible underlying mild COPD. Gastroesophageal reflux disease. History of hypertension. History of osteoarthritis. Hypothyroidism, not optimally treated. History of anemia. Plan: Plan dated November 20, 2023. The patient is seen in the emergency department. The patient was on 4 L of oxygen. Saturations were 99%. Blood pressure was 148/70. Heart rate was 61. Respiratory rate was 14. She was afebrile. The patient was no longer on dopamine. She was getting saline at 75 cc an hour. Labs, x-rays, medications are reviewed. 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 The patient's TSH is high, so she may not be taking her thyroid replacement therapy. That should be addressed by the primary service. No additional recommendations at this time. Plan dated November 21, 2023. The patient was seen in room 375. She is resting comfortably. She is on 4 L. Saline is running at 25 cc an hour. Labs, x-rays, medications are all reviewed. We will continue to follow make recommendations along the way. She does likely have underlying mild COPD. No additional recommendations are made. Plan dated November 23, 2023. The patient was seen today in room 375. She is on 3 L. She had a dual-chamber pacemaker placed yesterday. Labs, x-rays, and medications are reviewed. We will follow the patient only as needed moving forward. Respiratory status is stable. Time with Patient: Less than 30
--- NOTE | 2023-11-23 12:07 | P.PN ---
Subjective HISTORY OF PRESENT ILLNESS: This is a 78-year-old female with a past medical history significant for coronary artery disease with previous stenting of the LAD, cardiomyopathy with recovered EF, valvular heart disease, hypertension, hyperlipidemia, paroxysmal atrial fibrillation, and pulmonary embolism. Patient follows in the office with Dr. Alfonso. We have been asked to see the patient in consultation for symptomatic bradycardia. Patient examined at the bedside in the emergency room. Patient's granddaughter is present. Apparently yesterday the patient had made dinner and afterwards she was standing in the kitchen when she passed out to the floor. Her family member states that she did hit her head. She was unconscious and the feeling member called 911 and was instructed to do CPR over the phone. EMS arrived and transported the patient to the hospital. En route to the hospital, the patient developed third-degree heart block and was treated with epinephrine and temporary pacing. The patient was also started on IV dopamine in the emergency room which has since been discontinued. The patient is on high-dose beta-blockers outpatient with metoprolol 100 mg twice a day. Patient also states that she was recently at [facility] and was diagnosed with bilateral pulmonary embolisms and started on Eliquis. She states at that time she also had issues with atrial fibrillation and was started on amiodarone which she has been tapering down at home. She states that she is currently on once a day dosing but is unsure if it is 100 or 200 mg. She does report she has had episodes in the past of uncontrolled tachycardia. The patient also gives additional history that prior to being admitted to [facility] she had a syncopal episode about 2 weeks prior to being in the hospital. DIAGNOSTICS: - EKG reveals sinus mechanism with left bundle branch block. - Chest xray right upper lung medial increased airspace opacities - Laboratory data: WBC 8.5. Hemoglobin 13.5. Platelet count 201. Sodium 140. Potassium 5.0. BUN 32. Creatinine 1.74. Hodgeman negative x 3. - Current home cardiac medications include Lipitor 40 mg at night, amiodarone 200 mg daily, Lasix 40 mg daily, Eliquis 5 mg twice a day, metoprolol tartrate 100 mg twice a day, aspirin 81 mg daily. - Most recent echocardiogram obtained in October 2023 revealed normal EF, severe pulmonary hypertension, mild AR, moderate to severe TR, mild MR -Patient underwent Lexiscan stress test in May 2020 which was negative for ischemia - Cardiac catheterization history: January 2023 revealing patent stent in the mid LAD 11/21/2023 Patient examined this morning at the bedside. Patient currently denies chest pain or pressure. She denies shortness of breath. Telemetry reveals sinus mechanism. Patient has had no further episodes of bradycardia or complete heart block. Vital signs are stable. Echocardiogram reveals ejection fraction 50 to 55% with LVH 11/23/2023 Patient is status post dual-chamber pacemaker implantation. Patient examined this morning at bedside. Patient currently denies chest pain or pressure. She denies shortness of breath. Vital signs are stable. Chest x-ray reviewed with appropriate lead placement and no pneumothorax noted. Pending ICD interrogation this morning PHYSICAL EXAM: VITAL SIGNS: Reviewed. GENERAL: Well-developed in no acute distress. HEENT: Head is normocephalic. Pupils are equal, round. Sclerae anicteric. Mucous membranes of the mouth are moist. Neck supple. No JVD or thyromegaly LUNGS: Respirations even and unlabored. Lungs essentially clear to auscultation bilaterally. HEART: Regular rate and rhythm. S1 and S2 heard. Systolic murmur noted. ABDOMEN: Soft. Nondistended. Nontender. EXTREMITIES: Normal range of motion. No clubbing or cyanosis. Peripheral pulses intact. No lower extremity edema NEUROLOGIC: Awake and alert. Oriented x 3. ASSESSMENT: Syncope secondary to complete heart block, status post dual-chamber pacemaker implantation History of recent syncopal episode prior to being started on amiodarone Tachybradycardia syndrome Paroxysmal atrial fibrillation Recent diagnosis of bilateral pulmonary embolism at [place], [facility] Acute kidney injury Coronary artery disease with previous stenting of the LAD Valvular heart disease Hypertension Hyperlipidemia PLAN: Continue current cardiac medications Awaiting device interrogation today Discharge home today pending PPM interrogation Nurse practitioner note has been reviewed by physician. Signing provider agrees with the documented findings, assessment, and plan of care documented by PAIRING MACHINE OPERATOR as a scribe. Objective - Vital Signs Vital signs: Vital Signs Temp 97.8 F 11/23/23 09:29 Pulse 64 11/23/23 09:37 Resp 18 11/23/23 09:29 BP 130/86 11/23/23 09:29 Pulse Ox 96 11/23/23 09:29 FiO2 Intake & Output 11/22/23 11/23/23 11/23/23 18:59 06:59 18:59 Intake Total 400 1180 120 Balance 400 1180 120 Weight 81.2 kg Intake: IV 400 Intake, IV Titration 100 Amount ceFAZolin 2 gm In Sodium 100 Chloride 0.9% 50 ml @ 100 mls/hr IVPB ONCE PRN Rx# :[id number] Oral 1080 120 Other: Voiding Method Toilet Toilet Toilet # Voids 2 - Labs CBC & Chem 7: 11/22/23 07:47 11/22/23 07:47
[2023-11-23 12:40] VITALS: PULSE 67
[2023-11-23] MEDS ORDERED: SODIUM CHLORIDE 0.9% 500 ML BAG IV STA (12:45)
[2023-11-23 15:33] VITALS: TEMP 97.6
[2023-11-23 16:02] VITALS: BP 101/58
--- NOTE | 2023-11-25 07:43 | P.DS ---
Providers Date of admission: 11/20/23 01:04 Attending physician: George Mcgowan Consults: 11/20/23 01:01 Consult Physician Urgent Consulting Provider: Freeman Felix Consult Reason/Comments: Symptomatic bradycardia. Do you want consulting provider notified?: Already Contacted 11/20/23 06:38 Consult Physician Routine Consulting Provider: Kwaku Grider Reason/Comments: Third-degree heart block. Symptomatic bradycardia Do you want consulting provider notified?: Already Contacted Primary care physician: Violet Robledo [facility] Course: HISTORY OF PRESENT ILLNESS: This is a 78-year-old female with a past medical history significant for coronary artery disease with stents, cardiomyopathy with recovered EF, hypertension hyperlipidemia paroxysmal atrial fibrillation and pulmonary e mbolism on Eliquis, and valvular heart disease. Patient presents to the hospital on 11/19/2023 following a fall at home patient states she was in the kitchen cooking dinner when she fell, family member heard the fall immediately call 911 and from their instruction began CPR, although patient never had loss of vital signs. When EMS arrived they discovered patient was in third-degree heart block, she was given epinephrine and started on temporary pacing. In the emergency department patient was started on IV dopamine but this has since been discontinued. Patient recently had another episode of syncope 2 weeks ago, she was treated at [facility] where she was diagnosed with bilateral pulmonary embolisms and atrial fibrillation with rapid ventricular rate, during this admission she was started on Eliquis as well as an amiodarone taper and metoprolol. Additional ER workup included chest x-ray which demonstrated right upper lung medial increased airspace opacities, blood work showed white blood cells 8.5, hemoglobin 13.5, platelet 201, sodium 140, potassium 5.0, BUN 32, creatinine 1.74, EGFR 27, TSH 7.64, FT4 2.34, troponins negative x 3. Cardiology was consulted to evaluate for potential pacemaker placement.Over the weekend of repeat echocardiogram showed an EF of 50 to 55% with LVH, unchanged from past echo performed in October 2023. Cardiology evaluated the patient and are recommending a permanent pacemaker be placed, hold metoprolol, continue amiodarone, continue Eliquis. Patient was admitted to cardiac floor for continuous telemetry monitoring, no further episodes of bradycardia or syncope over the weekend. Patient is scheduled for permanent pacemaker placement today. 11/22/2023: Patient seen today, appears overall well. No further bradycardia, syncope, dizziness overnight. No issues reported from nursing staff overnight. Patient is scheduled to have permanent pacemaker placed by Dr. Felix today. She reports some right sided chest pain and rib pain from the fall. 11/23/2023: Patient went for dual chamber pacemaker placement yesterday. No issues reported overnight. Discussed with nursing staff, per Dr. Champion a [employer] motor vehicle representative will come interrogate the device at noon, and patient will be able to be discharged after 3 PM today. Patient is able to resume all medications. Chest x-ray completed this morning unremarkable. Vital signs stable overnight. REVIEW OF SYSTEMS: CONSTITUTIONAL: Well-developed no acute respiratory distress. EYES: No icterus sclerae, no conjunctivitis. EARS, NOSE, MOUTH, THROAT, and FACE: No sore throat, lymphadenopathy, carotid bruits or deformity. RESPIRATORY: No SOB cough or wheezes. CARDIOVASCULAR: Positive palpitations. No CP, PND, Orthopnea, or angina. GASTROINTESTINAL: No Abd pain, Nausea or vomiting, no Diarrhea or constipation, No GI Bleed, no distention or masses. GENITOURINARY: Negative for Hematuria or UTI, no kidney stones. INTEGUMENT/BREAST: Negative for any muscular injury with mild osteoarthritis.. HEMATOLOGIC/LYMPHATIC: Negative for bleed or purpura. MUSCULOSKELTAL: Positive lower right rib pain. Negative for Myalgia or arthralgia. NEURLOGICAL: Positive syncope and dizziness, negative confusion, blurred vision, weakness. BEHAVIORAL/PSYCH: Negative. ENDOCRINE: Negative. PHYSICAL EXAMINATION: General Appearance: Alert, cooperative, no distress, appears stated age. Neck HEENT: Supple, no lymphadenopathy, no thyroid enlargement, no carotid bruits. Lungs: Clear to auscultation without crackles or wheezes no rhonchi, no deformity. Chest Wall: Chest wall normal expansion with deep inspiration, no deformity was found on exam. Reports right sided rib pain. Surgical dressing present on left anterior chest wall from PM placement, dressing is CDI, no swelling or hematoma. Heart: Regular rate and rhythm, S1, S2 normal, no murmur, rub or gallop. Back: Symmetric, no curvature, ROM normal, no CVA tenderness. Abdomen: Soft, non-tender, bowel sounds active all four quadrants, no masses, no organomegaly. Extremities: Extremities normal, atraumatic, no cyanosis or edema. Wearing left- arm sling Pulses: 2+ and symmetric. Skin: Skin color, texture, tugor normal, no rashes or lesions. Neurologic: Alert oriented x3 cranial nerves II through XII intact, no motor deficit, no abnormal balance or gait. ASSESSMENT AND PLAN: _Syncope secondary to complete heart block, was placed on temporary pacing in EMS and ER, now in sinus rhythm underlying LBBB after dual chamber pacemaker placement on 11/21. Okay to resume metoprolol and amiodarone per cardiology. _Complete heart block: Pacemaker placed yesterday, underlying left bundle branch block. Cardiology following. On metoprolol, amiodarone, eliquis. _Pacemaker secondary to paroxysmal AV block: [employer] dual chamber pacemaker placed on 11/21, to be interrogated and settings adjusted by motor vehicle representative at noon, then patient able to be discharged. Continue supportive care and activity restrictions. _Paroxysmal Atrial Fibrillation, was recently treated for atrial fibrillation with rapid ventricular rate 2-3 weeks ago at [facility], was started on amiodarone, as well as metoprolol and eliquis. Metoprolol was on hold for complete heart block, can now resume all medications. _History of recent bilateral pulmonary embolism, diagnosed 2-3 weeks ago at [facility] following an episode of syncope, was also found to be in A-fib RVR at this time. Was started on eliquis 5mg twice a day, has been compliant with medication. _Cardiomyopathy with recovered EF, Echo performed in October 2023 demonstrated normal EF, severe pulmonary hypertension, mild AR, moderate to severe TR, and mild MR. Repeat echocardiogram on 11/19 largely unchanged, EF 50-55%, septal bounce consistent with left bundle branch block. _Acute Kidney Injury: Improved from admission, last BUN 22, creatinine 0.76, eGFR 75. Check CMP daily. _Right rib pain secondary to compressions done at home, no fracture on right rib x-ray. Continue supportive care. _Coronary Artery Disease with stenting: Recent cardiac catheterization in January 2023 revealed patent stent to the LAD. Continue atorvastatin and aspirin. _Hypertension: Blood pressure stable, continue metoprolol. _Hyperlipidemia: Continue atorvastatin and aspirin. _Hypothyroidism: Continue levothyroxine. DVT Prophylaxis: Continue eliquis. Disposition: FULL CODE Discussion: Permanent pacemaker inserted yesterday by Dr. Felix without issue. Resume all medications. [employer] motor vehicle representative will come interrogate device and adjust settings, patient will be able to be discharged after 3pm. HOSPITAL COURSE: Patient presented to the emergency department on 11/19/2023 following a syncopal episode at home. Patient was cooking dinner when she collapsed family members heard fall and called 911, were instructed to begin CPR at that point although patient has never lost vital signs, when EMS arrived they determined patient was in complete heart block and administered epinephrine and started temporary pacing. In the emergency department patient was briefly on IV dopamine but this was discontinued. ER workup included chest x-ray which demonstrated right upper lung medial increased airspace opacities, right rib x-ray negative for fracture or pneumothorax, blood work white blood cell 8.5, hemoglobin 13.5, platelet 201, sodium 140, potassium 5.0, BUN 32, creatinine 1.74, EGFR 27, TSH 7.64, FT4 2.34, troponins negative x 3. Notably patient had syncopal episode 2 to 3 weeks ago for which she was admitted to [facility] and was diagnosed with pulmonary embolism and atrial fibrillation with rapid ventricular rate during this admission she was started on Eliquis, amiodarone, and metoprolol. For this admission cardiology was consulted to evaluate for potential pacemaker placement. Cardiology saw the patient, ordered repeat echocardiogram which showed EF of 50 to 55%, mild LVH, mild mitral regurgitation, mild tricuspid regurgitation, septal bounce consistent with left bundle branch block pattern. This was largely unchanged from echo performed in October 2023. Throughout the admission patient did not have any further episodes of syncope or bradycardia, however left bundle branch block did persist so patient was scheduled for dual-chamber permanent pacemaker placement on 11-22-2023. Until pacemaker was placed cardiology recommended metoprolol be held, but continue amiodarone and Eliquis. [employer] dual-chamber pacemaker was successfully placed without complication. Follow-up chest x-ray was unremarkable. At time of discharge patient is doing very well, vital signs have remained stable, acute kidney injury discovered on admission has resolved, most recent blood work shows white blood cell 7.0, hemoglobin 13.0, hematocrit 44.2, platelet count 187, potassium 4.9, BUN 22, creatinine 0.76, eGFR 75. Cardiology recommending resume all medications including metoprolol, will have [employer] motor vehicle representative interrogate pacemaker and adjust settings at noon, are clearing patient for discharge after 3 PM. Patient is aware of activity restrictions for left arm and will be sent home with copy of instructions for reference. Home health services at discharge has been arranged. Patient to follow-up with Dr. De Jesus's office in 1 week for device check, and follow-up with our office within the next week. Time spent on patient discharge was over 32 minutes. The patient was seen and evaluated by Dr. Mcgoawn. Plan, assessment and medications were all discussed, reviewed, and directed by Dr. Mcgowan with Lex DENNIS acting as a scribe. Patient Condition at Discharge: Stable Plan - Discharge Summary Discharge Rx Participant: No New Discharge Prescriptions: New Oxybutynin ER [Ditropan XL] 15 mg PO QAM #30 tab Cholecalciferol [Vitamin D3 (25 Mcg = 1000 Iu)] 50 mcg PO DAILY tab Isosorbide Mononitrate ER [Imdur] 30 mg PO QAM #30 tab Continue Folic Acid 1 mg PO DAILY Levothyroxine Sodium [Synthroid] 88 mcg PO DAILY Escitalopram Oxalate [Lexapro] 10 mg PO DAILY Nitroglycerin 0.4 mg SL Q5M PRN PRN Reason: Chest Pain Amiodarone [Cordarone] 200 mg PO DAILY Atorvastatin Calcium [Lipitor] 40 mg PO HS Cyanocobalamin [Vitamin B-12 Injection] 1,000 mcg SQ Q14D oxyCODONE-APAP 7.5-325MG [Percocet 7.5-325 mg] 1 tab PO QID Denosumab [Prolia] 60 mg SQ Q180D clonazePAM 0.75 mg PO HS Metoprolol Tartrate [Lopressor] 100 mg PO BID Aspirin [Adult Low Dose Aspirin EC] 81 mg PO DAILY Pantoprazole [Protonix] 40 mg PO DAILY Gabapentin 300 mg PO BID Apixaban [Eliquis] 5 mg PO BID Budesonide/Formoterol Fumarate [Symbicort 160-4.5 Mcg Inhaler] 2 puff INHALATION RT-BID Furosemide [Lasix] 40 mg PO DAILY Discharge Medication List Folic Acid 1 mg PO DAILY 01/05/14 [History] Levothyroxine Sodium [Synthroid] 88 mcg PO DAILY 01/05/14 [History] Aspirin [Adult Low Dose Aspirin EC] 81 mg PO DAILY 02/18/23 [History] Escitalopram Oxalate [Lexapro] 10 mg PO DAILY 02/18/23 [History] Gabapentin 300 mg PO BID 02/18/23 [History] Metoprolol Tartrate [Lopressor] 100 mg PO BID 02/18/23 [History] Nitroglycerin 0.4 mg SL Q5M PRN 02/18/23 [History] Pantoprazole [Protonix] 40 mg PO DAILY 02/18/23 [History] clonazePAM 0.75 mg PO HS 02/18/23 [History] Amiodarone [Cordarone] 200 mg PO DAILY 11/20/23 [History] Apixaban [Eliquis] 5 mg PO BID 11/20/23 [History] Atorvastatin Calcium [Lipitor] 40 mg PO HS 11/20/23 [History] Budesonide/Formoterol Fumarate [Symbicort 160-4.5 Mcg Inhaler] 2 puff INHALATION RT-BID 11/20/23 [History] Cyanocobalamin [Vitamin B-12 Injection] 1,000 mcg SQ Q14D 11/20/23 [History] Denosumab [Prolia] 60 mg SQ Q180D 11/20/23 [History] Furosemide [Lasix] 40 mg PO DAILY 11/20/23 [History] oxyCODONE-APAP 7.5-325MG [Percocet 7.5-325 mg] 1 tab PO QID 11/20/23 [History] Cholecalciferol [Vitamin D3 (25 Mcg = 1000 Iu)] 50 mcg PO DAILY tab 11/23/23 [Rx] Isosorbide Mononitrate ER [Imdur] 30 mg PO QAM #30 tab 11/23/23 [Rx] Oxybutynin ER [Ditropan XL] 15 mg PO QAM #30 tab 11/23/23 [Rx] Follow up Appointment(s)/Referral(s): Freeman Felix MD [STAFF PHYSICIAN] - 11/30/23 3:00 pm Violet Robledo MD [Primary Care Provider] - 11/26/23 10:30 am (with Nurse PractitionerVimal ) [facility] [NON-STAFF] - Patient Instructions/Handouts: Pacemaker (DC) Activity/Diet/Wound Care/Special Instructions: PATIENT EDUCATION MATERIAL Instructions following a heart rhythm device implant. 1. Keep dressing DRY for 5 DAYS. You may cover the area with Saran or Cling Wrap, prior to a shower. 2. The dressing will be removed in the Device Clinic at [facility]. Absorbable sutures were used to close the wound. 3. Avoid raising the left arm above the shoulder level. 4 week restriction 4. Avoid arm movements, like backscratching, rubbing the head, or pulling on a cord. 4 weeks restriction 5. Gentle range of motion movements of the shoulder, closest to the incision should be performed to avoid a frozen shoulder. (Pendulum exercises of the shoulder) 6. The opposite arm may be used freely. 7. Avoid driving for 7 days. 8. Avoid activities such as golfing, swimming, weed whacking, lifting more than 10 pounds weight, bowling, gymnastics and weight training/lifting. (6 weeks restriction) 9. Activities such as wood chopping with an axe, pull-ups in the gymnasium, power lifting, arc-welding, being close to home induction cooktops will always be a problem. 10. Arm sling is only a reminder not to raise the arm above the head. You do not need to keep the arm completely immobilized. Your free to move the arm and use it and for normal activities. In case of any problems, please call [facility], [facility], @ [phone], Attention: Device Clinic Device clinic follow-up in 5 days Follow-up with primary long line teamster in 2-3 months Discharge Disposition: HOME WITH HOME HEALTH SERVICES
== END 2023-11-23 16:00 | disposition home health service (06) | DRG 243 ==
LOC: EC 21:15 → 3SCARD 11-20 01:04 → 2SICU 11-20 04:55 → 3SCARD 11-20 09:41
PROVIDERS: ADMIT Internal Medicine Geriatric Medicine; ATTEND Internal Medicine Geriatric Medicine
PROC: 3E033XZ Introduction of Vasopressor into Peripheral Vein, Percutaneous Approach (ICD-10-PCS; 2023-11-19)
PROC: 02H63JZ Insertion of Pacemaker Lead into Right Atrium, Percutaneous Approach (ICD-10-PCS; 2023-11-22)
PROC: 02HK3JZ Insertion of Pacemaker Lead into Right Ventricle, Percutaneous Approach (ICD-10-PCS; 2023-11-22)
PROC: 0JH606Z Insertion of Pacemaker, Dual Chamber into Chest Subcutaneous Tissue and Fascia, Open Approach (ICD-10-PCS; principal; 2023-11-22 07:30)
DX: I44.2 Atrioventricular block, complete (principal); I42.9 Cardiomyopathy, unspecified; N17.9 Acute kidney failure, unspecified; I27.20 Pulmonary hypertension, unspecified; J44.9 Chronic obstructive pulmonary disease, unspecified; I48.0 Paroxysmal atrial fibrillation; I49.5 Sick sinus syndrome; Z86.74 Personal history of sudden cardiac arrest; I95.9 Hypotension, unspecified; E03.9 Hypothyroidism, unspecified; I10 Essential (primary) hypertension; I08.3 Combined rheumatic disorders of mitral, aortic and tricuspid valves; I25.10 Atherosclerotic heart disease of native coronary artery without angina pectoris; R00.1 Bradycardia, unspecified; K21.9 Gastro-esophageal reflux disease without esophagitis; M19.90 Unspecified osteoarthritis, unspecified site; D64.89 Other specified anemias; E78.5 Hyperlipidemia, unspecified; W18.30XA Fall on same level, unspecified, initial encounter; Y92.009 Unspecified place in unspecified non-institutional (private) residence as the place of occurrence of the external cause; Z79.82 Long term (current) use of aspirin; Z79.01 Long term (current) use of anticoagulants; Z79.51 Long term (current) use of inhaled steroids; Z79.891 Long term (current) use of opiate analgesic; Z95.5 Presence of coronary angioplasty implant and graft; Z96.611 Presence of right artificial shoulder joint; Z96.651 Presence of right artificial knee joint; Z87.891 Personal history of nicotine dependence; Z79.890 Hormone replacement therapy; Z79.899 Other long term (current) drug therapy; Z86.711 Personal history of pulmonary embolism; Z88.5 Allergy status to narcotic agent
CPT/HCPCS: 33208; 36415; 71045; 71046; 80048; 80053; 80061; 83735; 84100; 84145; 84439; 84443; 84484; 85025; 85610; 85730; 93005; 93306; 94640; 94760; 96361; 96365; 96366; 99285

== ENCOUNTER → 2024-08-25 | Outpatient (CLI) | payer MEDICARE, OTHER ==
[2024-08-25 14:54] LABS: African American GFR (CKD) >90 (>60 ml/min/1.73 sqM); Blood Urea Nitrogen 17 mg/dL (7-17); Non-African American GFR(CKD) 86 (>60 ml/min/1.73 sqM)
--- NOTE | 2024-08-25 16:18 | CT ---
EXAMINATION TYPE: CT angio abdomen pelvis CT abdomen and pelvis without contrast. CT angiogram abdomen and pelvis with contrast. DATE OF EXAM: 08/25/2024 3:42 PM COMPARISON: None. CLINICAL INDICATION: Female, 78 years old with history of I71.40 ABDOMINAL AORTIC ANEURYSM, WITHOUT R UPTURE; PHH, AAA w/o rupture. TECHNIQUE: CT angio abdomen pelvis CT noncontrast abdomen pelvis and bilateral lower extremity followed by CT angiogram abdomen and pelv is. Multiple thin slice sub-millimeter images were obtained before and after administration of contrast. 3-D reconstructed images and maximum intensity projection images were obtained on a separate works tation. CT angio abdomen pelvis CT Contrast: Contrast used:100 ml mL of Isovue 370 with IV Contrast, Oral contrast used: without Oral Contrast None CT DLP: 968.9 mGycm, Automated exposure control for dose reduction was used. FINDINGS: CTA Abdomen and pelvis: Infrarenal abdominal aortic aneurysm up to 32 mm. No evidence for intramural hematoma on noncontrast imaging. No evidence for dissection flap on postcontrast imaging. The major v essels of the abdominal aorta are patent. Scattered atherosclerotic plaque is seen throughout the art erial vasculature. LOWER CHEST: No evidence of focal consolidation, pneumothorax or pleural effusion. Cardiac conduction leads partially visualized within the surgical atrium. The scattered airspace opacities in the right middle lobe. LIVER: Arterial phase enhancing right hepatic lobe lesion measuring 9 mm series 6 image 96. GALLBLADDER AND BILE DUCTS: Gallbladder is surgically absent with mild intrahepatic and extra hepatic biliary dilatation likely physiologic and a postcholecystectomy change. No evidence of choledocholit hiasis. PANCREAS: Unremarkable. SPLEEN: Unremarkable. ADRENAL GLANDS: Unremarkable. KIDNEYS AND URETERS: No evidence of hydronephrosis or renal calculus. The ureters are unremarkable. PELVIS BLADDER: Unremarkable REPRODUCTIVE: Unremarkable. ABDOMEN & PELVIS STOMACH AND BOWEL: No evidence of bowel obstruction. Postsurgical changes to the bowel. PERITONEUM: No evidence of pneumoperitoneum or free fluid. MUSCULOSKELETAL: Moderate disc degeneration changes are present throughout the thoracolumbar spine. LYMPH NODES: No gross evidence for lymphadenopathy. SOFT TISSUE/ABDOMINAL WALL: Unremarkable IMPRESSION: 1. Infrarenal abdominal aortic aneurysm measuring up to 31 mm. 2. No evidence for dissection or intramural hematoma. 3. Right hepatic lobe arterial phase enhancing lesion measuring 9 mm which is incompletely evaluated . Consider liver mass protocol MRI for further evaluation of this lesion. 4. Colonic diverticulosis. 5. Gallbladder is surgically absent with mild intrahepatic and extra hepatic biliary dilatation like ly physiologic and a postcholecystectomy change. No evidence of choledocholithiasis. 6. Few scattered airspace opacities in the right middle lobe correlate for pneumonia. [facility], , 08/25/2024 4:16 PM
== END | disposition home or self-care (01) ==
LOC: RADCTMAIN 14:21
PROVIDERS: ATTEND Family Medicine
DX: I71.40 Abdominal aortic aneurysm, without rupture, unspecified (principal); K57.30 Diverticulosis of large intestine without perforation or abscess without bleeding; I71.43 Infrarenal abdominal aortic aneurysm, without rupture; K76.89 Other specified diseases of liver; Z90.49 Acquired absence of other specified parts of digestive tract
CPT/HCPCS: 82565; 84520; 36415; 74174; Q9967